=== PATIENT | male | born 1935 | race Caucasian/White ===

== ENCOUNTER 2020-09-26 20:26 | Inpatient (IN) ==
[2020-09-26] MEDS ORDERED: DUONEB NEB STA (20:57)
[2020-09-26 21:05] LABS: ABG PH 7.46 (7.35-7.45)
[2020-09-26 21:06] LABS: ABG BASE EXCESS 5.4 (-2.0-2.0); ABG HCO3 29.2 (22.0-26.0); ABG OXYGEN SATURATION 88.9 % (95-100); ABG TCO2 30.5 (22.0-28.0)
[2020-09-26] MEDS ORDERED: PROAIR HFA (SINGLE PATIENT USE) IH STA (21:10)
[2020-09-26] MEDS ORDERED: ATROVENT HFA INHALER (PER PUFF-WITH SPACER) IH STA (21:10)
--- NOTE | 2020-09-26 21:19 | ED.PDOC ---
General ED Provider: Dr. LEI SALAS Stated Complaint: Patient is brought By EMS with complaints of cough for two weeks and now fever with shortness of breath. Family also report some confusion but he has been answering questions appropriately. Denies any chest pain, abdominal pain or difficulty or burning on urination. Time Seen by Physician: 20:50 Mode of Arrival: Ambulance Information Source: EMT Exam Limitations: No limitations Primary Care Provider: MEY HOBSON Nursing and Triage Documentation Reviewed and Agree: Yes Does patient meet sepsis criteria?: Yes If yes, has appropriate treatment been initiated?: Yes System Inflammatory Response Syndrome: Pulse >90 BPM, Resp >20/Minute and Acutely Altered Mental Status Sepsis Protocol: For patient's 13 years and over: Temp is 96.8 and below OR 101 and greater Pulse >90 BPM Resp >20/minute Acutely Altered Mental Status Are patient's symptoms suggestive of a new infection, such as: -Pneumonia -Skin, Soft Tissue -Endocarditis -UTI -Bone, Joint Infection -Implantable Device -Acute Abdominal Infection -Wound Infection -Meningitis -Blood Stream Catheter Infection -Unknown Respiratory Complaint Exam Shortness of Air Complaint/Exam Onset/Duration: 2 weeks Symptoms Are: Still present Timing: Constant Initial Severity: Mild Current Severity: Moderate Character: Reports Dyspnea at rest Aggravating: Reports Weather Alleviating: Reports Oxygen Associated Signs and Symptoms: Reports Cough, Fever, Chills and Rapid breathing; Denies Chest pain with cough, Chest pain, Diaphoresis and Dizziness History of Healthcare-Acquired Pneumonia: No Home Oxygen Use: No Recent Stress Test: No Recent Echo/LV Function: No Respiratory Distress: Mild Stridor Present: No Tracheal Deviation: No Subcutaneous Emphysema: No Accessory Muscle Use: No Retractions: Not Present Diminished Breath Sounds: No Prolonged Expiratory Phase: No Unable to Speak Full Sentences: No Fatigue: No Leg Swelling: No Ellis's Sign Present: No Grunting Respirations: No Kussmaul Respirations: No Differential Diagnoses: Pulmonary Edema, OR, Pneumonia, Bronchitis and URI Review of Systems Review Of Systems Constitutional: Reports Chills and Fever Eyes: Reports No symptoms Ears, Nose, Mouth, Throat: Reports No symptoms Respiratory: Reports Cough and Short of air Cardiac: Reports No symptoms GI: Reports No symptoms : Reports No symptoms Musculoskeletal: Reports No symptoms Skin: Reports No symptoms Neurological: Reports Anxiety Endocrine: Reports No symptoms Hematologic/Lymphatic: Reports No symptoms All Other Systems: Reviewed and Negative Physical Exam Physical Exam Appearance: Reports Ill-appearing Ill-appearing: Moderate Pain Distress: None Eyes: Reports GARY, EOMI and Conjunctiva clear ENT: Reports Nose normal Neck: Supple Respiratory: Reports Airway patent, Crackles and Rhonchi Cardiovascular: Reports RRR, Pulses normal and No rub GI/: Reports Soft and Nontender Musculoskeletal: Reports Normal strength, ROM intact and No edema Skin: Reports Warm, Dry and Normal color Neurological: Reports Motor intact, Alert and Oriented Psychiatric: Reports Affect appropriate and Mood appropriate Interpretation Radiology Interpretation Radiology Interpretation By: Radiologist Radiology Results: Positive (1. No evidence of pulmonary artery thrombus 2. Bilateral lower lung consolidative pneumonia.) Exam Interpreted: CT Scan Critical Care Note Critical Care Note Total Critical Care Time (mins): 45 Course Course Hematology/Chemistry: 09/26/20 21:15 09/26/20 21:15 Orders, Labs, Meds: Lab Review 09/26/20 09/26/20 09/26/20 20:57 21:15 21:15 WBC 10.29 H RBC 4.22 L Hgb 12.9 L Hct 38.0 L MCV 90.0 MCH 30.6 MCHC 33.9 RDW Coeff of Olaf 13.7 Plt Count 196 Neutrophils % (Manual) 64.0 Band Neutrophils % 18.0 H Lymphocytes % (Manual) 9.0 L Monocytes % (Manual) 9.0 Anisocytosis Not present Puncture Site Rrad O2 Saturation 88.9 L ABG pH 7.46 H ABG pCO2 41.0 ABG pO2 53.0 L* ABG HCO3 29.2 H ABG Total CO2 30.5 H ABG Base Excess 5.4 H Migel Test + FiO2 % 21.0 Sodium 134.7 Potassium 3.84 Chloride 98.1 Carbon Dioxide 30.5 H Anion Gap 9.94 BUN 32.0 H Creatinine 1.30 H Estimated GFR (MDRD) 53.00 BUN/Creatinine Ratio 24.61 Glucose 204.6 H Lactic Acid Calcium 8.41 Total Bilirubin 0.81 AST 22.1 ALT 15.4 Alkaline Phosphatase 65.8 Total Creatine Kinase 119.9 CK-MB (CK-2) 5.260 H* CK-MB (CK-2) % 4.3800 Troponin I 0.016 NT-Pro-B Natriuret Pep 1850.000 H Total Protein 6.50 Albumin 3.47 L Globulin 3.03 Albumin/Globulin Ratio 1.14 Procalcitonin D-Dimer Adenovirus (PCR) B. pertussis DNA (PCR) B.parapertussis DNA PCR C. pneumoniae DNA (PCR) Coronavirus OC43 (PCR) Coronavirus HKU1 (PCR) Coronavirus 229E (PCR) Coronavirus NL63 (PCR) Human Metapneumovir PCR Influenza Type A (PCR) Influenza B (RT-PCR) M. pneumoniae (PCR) Parainfluenza 1 (PCR) Parainfluenza 2 (PCR) Parainfluenza 3 (PCR) Parainfluenza 4 (PCR) RSV (PCR) Entero/Rhino (PCR) SARS-CoV-2 (PCR) 09/26/20 09/26/20 09/26/20 21:15 21:15 21:15 WBC RBC Hgb Hct MCV MCH MCHC RDW Coeff of Olaf Plt Count Neutrophils % (Manual) Band Neutrophils % Lymphocytes % (Manual) Monocytes % (Manual) Anisocytosis Puncture Site O2 Saturation ABG pH ABG pCO2 ABG pO2 ABG HCO3 ABG Total CO2 ABG Base Excess Migel Test FiO2 % Sodium Potassium Chloride Carbon Dioxide Anion Gap BUN Creatinine Estimated GFR (MDRD) BUN/Creatinine Ratio Glucose Lactic Acid 0.96 Calcium Total Bilirubin AST ALT Alkaline Phosphatase Total Creatine Kinase CK-MB (CK-2) CK-MB (CK-2) % Troponin I NT-Pro-B Natriuret Pep Total Protein Albumin Globulin Albumin/Globulin Ratio Procalcitonin 7.02 D-Dimer 2104.87 H Adenovirus (PCR) B. pertussis DNA (PCR) B.parapertussis DNA PCR C. pneumoniae DNA (PCR) Coronavirus OC43 (PCR) Coronavirus HKU1 (PCR) Coronavirus 229E (PCR) Coronavirus NL63 (PCR) Human Metapneumovir PCR Influenza Type A (PCR) Influenza B (RT-PCR) M. pneumoniae (PCR) Parainfluenza 1 (PCR) Parainfluenza 2 (PCR) Parainfluenza 3 (PCR) Parainfluenza 4 (PCR) RSV (PCR) Entero/Rhino (PCR) SARS-CoV-2 (PCR) 09/26/20 22:00 WBC RBC Hgb Hct MCV MCH MCHC RDW Coeff of Olaf Plt Count Neutrophils % (Manual) Band Neutrophils % Lymphocytes % (Manual) Monocytes % (Manual) Anisocytosis Puncture Site O2 Saturation ABG pH ABG pCO2 ABG pO2 ABG HCO3 ABG Total CO2 ABG Base Excess Migel Test FiO2 % Sodium Potassium Chloride Carbon Dioxide Anion Gap BUN Creatinine Estimated GFR (MDRD) BUN/Creatinine Ratio Glucose Lactic Acid Calcium Total Bilirubin AST ALT Alkaline Phosphatase Total Creatine Kinase CK-MB (CK-2) CK-MB (CK-2) % Troponin I NT-Pro-B Natriuret Pep Total Protein Albumin Globulin Albumin/Globulin Ratio Procalcitonin D-Dimer Adenovirus (PCR) Not detected B. pertussis DNA (PCR) Not detected B.parapertussis DNA PCR Not detected C. pneumoniae DNA (PCR) Not detected Coronavirus OC43 (PCR) Not detected Coronavirus HKU1 (PCR) Not detected Coronavirus 229E (PCR) Not detected Coronavirus NL63 (PCR) Not detected Human Metapneumovir PCR Not detected Influenza Type A (PCR) Not detected Influenza B (RT-PCR) Not detected M. pneumoniae (PCR) Not detected Parainfluenza 1 (PCR) Not detected Parainfluenza 2 (PCR) Not detected Parainfluenza 3 (PCR) Not detected Parainfluenza 4 (PCR) Not detected RSV (PCR) Not detected Entero/Rhino (PCR) Detected H SARS-CoV-2 (PCR) Not detected Orders Category Date Time Status ABG DRAW REQUEST Stat CARDIO 09/26/20 20:58 Completed ECHOCARDIOGRAM 2D-M MODE Routine CARDIO 09/27/20 00:08 Ordered ECHOCARDIOGRAM 2D-M MODE Routine CARDIO 09/27/20 00:15 Ordered EKG-(ED ONLY) Stat CARDIO 09/26/20 20:57 Completed METERED DOSE INHALATION Routine CARDIO 09/27/20 00:16 Active OXYGEN Routine CARDIO 09/27/20 00:08 Active ACTIVITY .Early Mobilization for VTE Prevention CARE 09/27/20 00:09 Active INTAKE & OUTPUT Q8HR CARE 09/27/20 00:08 Active NPO REMINDER: IMAGING ONCE CARE 09/26/20 22:01 Active VITAL SIGNS Q4HR CARE 09/27/20 00:09 Active VTE PREVENTION .ROVERTO and SCD On AM/Off PM CARE 09/27/20 00:08 Active CARDIAC DIET DIETARY 09/27/20 Breakfast Ordered ED ACCUCHECK ASSESSMENT .ONCE EMERGENCY 09/27/20 00:15 Active ED APPLY O2 .ONCE EMERGENCY 09/26/20 20:57 Active ED IV/MEDIPORT/POWERPORT .ONCE EMERGENCY 09/26/20 20:57 Active ABG Stat LAB 09/26/20 20:57 Completed BASIC METABOLIC PANEL DAILY@0600 LAB 09/27/20 06:00 Ordered BASIC METABOLIC PANEL DAILY@0600 LAB 09/28/20 06:00 Ordered BLOOD CULTURE (ED ONLY) Stat LAB 09/26/20 21:15 Received CBC W/ AUTO DIFF DAILY@0600 LAB 09/27/20 06:00 Ordered CBC W/ AUTO DIFF DAILY@0600 LAB 09/28/20 06:00 Ordered CBC W/ AUTO DIFF Stat LAB 09/26/20 21:15 Completed COMPREHENSIVE METABOLIC PANEL Stat LAB 09/26/20 21:15 Completed CREATINE KINASE Q8H LAB 09/27/20 06:15 Ordered CREATINE KINASE Q8H LAB 09/27/20 14:15 Ordered CREATINE KINASE Stat LAB 09/26/20 21:15 Completed D-DIMER Stat LAB 09/26/20 21:15 Completed LACTIC ACID Stat LAB 09/26/20 21:15 Completed MANUAL DIFFERENTIAL Stat LAB 09/26/20 21:15 Completed NT-PROBNP Stat LAB 09/26/20 21:15 Completed PROCALCITONIN Stat LAB 09/26/20 21:15 Completed RESPIRATORY PANEL 2.1 (PCR) Stat LAB 09/26/20 22:00 Completed TROPONIN I Q8H LAB 09/27/20 06:15 Ordered TROPONIN I Q8H LAB 09/27/20 14:15 Ordered TROPONIN I Stat LAB 09/26/20 21:15 Completed 0.9 % Sodium Chloride [Saline Flush] MEDS 09/26/20 20:57 Active 1 syr IVF PRN PRN Acetaminophen [Tylenol] MEDS 09/27/20 00:08 Active 650 mg PO Q4H PRN Albuterol Inhaler (Single Pt) [Proair Hfa (Single MEDS 09/26/20 21:10 Discontinued Patient Use)] 2 puff IH ONCE STA Albuterol Inhaler(with Spacer) [Ventolin Hfa (Per Puff- MEDS 09/27/20 06:00 Active with Spacer)] 2 puff IH RTQID Azithromycin Inj [Zithromax] 500 mg MEDS 09/27/20 00:13 Active 0.9 % Sodium Chloride [Sodium Chloride] 250 ml IV ONCE Ceftriaxone/D5w 1 gm Premix [Rocephin 1 gm/50 ml D5w] MEDS 09/28/20 09:00 Ordered 1 gm in 50 ml IV DAILY Ceftriaxone/D5w 1 gm Premix [Rocephin 1 gm/50 ml D5w] MEDS 09/27/20 00:06 Discontinued 1 gm in 50 ml IV ONCE Fluticasone Propionate [Flonase] MEDS 09/27/20 09:00 Active 1 spray ELENA DAILY Gabapentin [Neurontin] MEDS 09/27/20 09:00 Active 600 mg PO TID Glimepiride [Amaryl] MEDS 09/27/20 09:00 Active 1 mg PO TID Hydrochlorothiazide MEDS 09/27/20 09:00 Active 50 mg PO DAILY Ipratropium Inhaler(Spacer) [Atrovent Hfa Inhaler (Per MEDS 09/26/20 21:10 Discontinued Puff-with Spacer)] 2 puff IH ONCE STA Ipratropium Inhaler(Spacer) [Atrovent Hfa Inhaler (Per MEDS 09/27/20 06:00 Active Puff-with Spacer)] 2 puff IH RTQ6H Lisinopril [Zestril] MEDS 09/27/20 09:00 Active 40 mg PO DAILY Montelukast Sodium [Singulair] MEDS 09/27/20 09:00 Active 10 mg PO DAILY Ondansetron HCl/Pf [Zofran 4 mg/2 ml] MEDS 09/27/20 00:08 Active 4 mg IVP Q6H PRN Pramipexole Di-HCl [Mirapex] MEDS 09/27/20 09:00 Active 1.5 mg PO BID Propranolol HCl [Inderal] MEDS 09/27/20 09:00 Active 20 mg PO BID aspirin MEDS 09/27/20 00:29 Ordered 325 mg PO DAILY PRN cetirizine [Zyrtec] MEDS 09/27/20 00:29 Ordered 5 mg PO DAILY PRN metformin MEDS 09/27/20 09:00 Ordered 500 mg PO BID terazosin MEDS 09/27/20 09:00 Ordered 2 mg PO DAILY vitamin B complex MEDS 09/27/20 09:00 Ordered 1 cap PO DAILY RESUSCITATION STATUS Routine OTHERS 09/27/20 00:[address] CHEST PE PROTOCOL Stat RADS 09/26/20 22:01 Completed Medications Generic Name Dose Route Start Last Admin Trade Name Freq PRN Reason Stop Dose Admin Acetaminophen 650 mg 09/27/20 00:08 Acetaminophen 325 Mg Tablet PO Q4H PRN Fever >101 Albuterol Sulfate 2 puff 09/27/20 06:00 Albuterol Sulfate (Ventolin Hfa) 18 Gm 1 Puff With Spacer IH RTQID VINOD Aspirin 325 mg 09/27/20 00:52 Aspirin 325 Mg Tablet.Dr PO DAILY PRN joint pain Fluticasone Propionate 1 spray 09/27/20 09:00 Fluticasone Propionate 16 Gm Nasal [place] ELENA DAILY VINOD Gabapentin 600 mg 09/27/20 09:00 Gabapentin 300 Mg Capsule PO TID VINOD Glimepiride 1 mg 09/27/20 09:00 Glimepiride 2 Mg Tablet PO TID [facility] Hydrochlorothiazide 50 mg 09/27/20 09:00 Hydrochlorothiazide 25 Mg Tablet PO DAILY VINOD CEFTRIAXONE/D5W 1 GM PREMIX 1 gm in 50 mls @ 75 mls/hr 09/27/20 21:00 Rocephin 1 Gm/50 Ml D5w IV 09/30/20 20:59 BEDTIME VINOD Azithromycin 500 mg/ Sodium 250 mls @ 125 mls/hr 09/27/20 00:13 Chloride IV 09/27/20 02:12 ONCE STA Ipratropium [place] 2 puff 09/27/20 06:00 Ipratropium [place] 12.9 Gm Hfa Inhaler Per Puff With Spacer IH RTQ6H VINOD Lisinopril 40 mg 09/27/20 09:00 Lisinopril 40 Mg Tablet PO DAILY VINOD Metformin HCl 500 mg 09/27/20 09:00 Metformin Hcl 500 Mg Tablet PO BIDWM VINOD Montelukast Sodium 10 mg 09/27/20 09:00 Montelukast Sodium 10 Mg Tablet PO DAILY VINOD Non-Formulary Medication 2 mg 09/27/20 09:00 Terazosin PO DAILY VINOD Non-Formulary Medication 1 cap 09/27/20 09:00 Vitamin B Complex PO DAILY VINOD Non-Formulary Medication 5 mg 09/27/20 00:29 Cetirizine [Zyrtec] PO DAILY PRN allergies Ondansetron HCl 4 mg 09/27/20 00:08 Ondansetron Hcl/Pf 4 Mg/2 Ml Sdv IVP Q6H PRN Nausea / Vomiting Pramipexole Dihydrochloride 1.5 mg 09/27/20 09:00 Pramipexole Di-Hcl 1 Mg Tablet PO BID VINOD Propranolol HCl 20 mg 09/27/20 09:00 Propranolol Hcl 20 Mg Tablet PO BID VINOD Sodium Chloride 1 syr 09/26/20 20:57 0.9% Sodium Chloride 10 Ml Disp.Syrin IVF PRN PRN To flush IV Discontinued Medications Generic Name Dose Route Start Last Admin Trade Name Freq PRN Reason Stop Dose Admin Albuterol Sulfate 2 puff 09/26/20 21:10 09/26/20 21:59 Albuterol Sulfate 8.5 Gm Inhaler (Single Patient Use) IH 09/26/20 21:11 2 puff ONCE STA Administration CEFTRIAXONE/D5W 1 GM PREMIX 1 gm in 50 mls @ 75 mls/hr 09/27/20 00:06 09/27/20 00:43 Rocephin 1 Gm/50 Ml D5w IV 09/27/20 00:45 75 mls/hr ONCE STA Administration Ipratropium [place] 2 puff 09/26/20 21:10 09/26/20 21:59 Ipratropium [place] 12.9 Gm Hfa Inhaler Per Puff With Spacer IH 09/26/20 21:11 2 puff ONCE STA Administration Vital Signs: Temp Pulse Resp BP Pulse Ox 09/26/20 20:42 99.2 F 94 H 24 102/56 L 87 L Discharge Plan Discharge Patient Disposition: ADMITTED INPATIENT Discharge Problem: Acute hypoxemic respiratory failure Community acquired pneumonia Qualifiers: Laterality: unspecified laterality Qualified Code(s): J18.9 - Pneumonia, unspecified organism ED Provider: LEI SALAS Condition: Fair Physician Progress Note: []
[2020-09-26 21:21] LABS: HEMOGLOBIN 12.9 g/dl (14.0-18.0); MEAN CORPUSCULAR HEMOGLOBIN 30.6 pg (27.0-31.0); MEAN CORPUSCULAR HGB CONC 33.9 (31.8-35.4); PLATELET COUNT 196 10^3/uL (140-440); RDW COEFFICIENT OF VARIATION 13.7 % (11.6-14.8); RED BLOOD COUNT 4.22 10^6/ul (4.70-6.10); WHITE BLOOD COUNT 10.29 K/ul (4.2-10.2)
[2020-09-26 21:30] LABS: ANISOCYTOSIS NOT PRESENT (NOT PRESENT)
[2020-09-26 21:34] LABS: ALANINE AMINOTRANSFERASE 15.4 U/L (0-50); ALBUMIN 3.47 g/dL (3.5-5.0); ALKALINE PHOSPHATASE 65.8 U/L (56-119); ASPARTATE AMINO TRANSFERASE 22.1 U/L (17-59); BILIRUBIN,TOTAL 0.81 mg/dL (0.2-1.3); CALCIUM 8.41 mg/dL (8.4-10.2); CARBON DIOXIDE 30.5 mmol/L (22-30.0); CHLORIDE 98.1 mmol/L (98-107); CREATINE KINASE 119.9 U/L (55-170); CREATININE 1.3 mg/dL (0.60-1.10); GLUCOSE 204.6 mg/dL (74-106); POTASSIUM 3.84 mmol/L (3.5-5.1); SODIUM 134.7 mmol/L (134.5-145); TOTAL PROTEIN 6.5 g/dL (6.3-8.2)
[2020-09-26 21:46] LABS: TROPONIN I 0.016 ng/ml (0.0000-0.120)
--- NOTE | 2020-09-26 23:56 | CT ---
Exam: CT angiography of the chest History: Elevated D-dimer Technique: [address] of the chest utilizing CT angiography protocol per multiplanar and m aximum intensity projection reformations were performed. FINDINGS: Technically adequate for evaluation of pulmonary arteries and aorta. There are no pulmona ry artery filling defects. Atherosclerotic calcification of the aorta without aneurysm. Lung window s show right greater than left lower lung consolidative pneumonia. Bilateral reactive hilar lymph no de abundance. No acute chest wall abnormality. No acute findings of the upper abdomen. Impression: 1. No evidence of pulmonary artery thrombus 2. Bilateral lower lung consolidative pneumonia.
[2020-09-27] MEDS ORDERED: ROCEPHIN 1 GM/50 ML D5W 1 GM/50 ML BAG IV STA (00:06)
[2020-09-27] MEDS ORDERED: TYLENOL PO PRN (00:08)
[2020-09-27] MEDS ORDERED: ZOFRAN 4 MG/2 ML IVP PRN (00:08)
[2020-09-27] MEDS ORDERED: ZITHROMAX 500 MG in SODIUM CHLORIDE 250 ML IV STA (00:13)
[2020-09-27] MEDS ORDERED: ASPIRIN EC PO PRN (00:52)
--- NOTE | 2020-09-27 00:52 | PCM ---
History of Present Illness History of Present Illness: Patient is an 65 year old who come to the ER by EMS with a two week history of cough and shortness of breath which got worse with a fever of101. Review of Systems Constitutional: Reports Fever and Chills Eyes: Denies No symptoms, Blurred vision, Double-vision, Discharge, Itching, Pain, Redness, Photophobia and Other Ears: Denies No symptoms, Pain, Bleeding, Drainage, Ringing, Hearing loss and Other Nose: Denies No symptoms, Bleeding, Congestion, Discharge and Other Throat: Denies No symptoms, Pain, Swelling, Voice change and Other Mouth: Denies No symptoms, Bleeding, Pain, Swelling and Other Respiratory: Reports Cough and Shortness of air; Denies No symptoms, Wheeze, Hemoptysis, Pain with breathing and Other Gastrointestinal: Denies No symptoms, Abdominal pain, Nausea, Vomiting, Diarrhea, Melena, Hematemesis, Hematochezia, Dysphagia, Constipation and Other Genitourinary: Denies No symptoms, dysuria, hematuria, frequency, incontinence, flank pain, penile discharge, testicular pain, testicular swelling and other Neurological: Denies No symptoms, Headache, Dizziness, Seizure, Numbness, Weakness, Speech difficulty, Problems with walking, Tremor, Fainting and Other Musculoskeletal: Denies No symptoms, Pain, Swelling in joints and Other Skin: Denies No symptoms, Rash, Pruritus, Lacerations, Wounds, Bruising and Other Immunology: Denies No symptoms, Hives, Itching, Frequent infections, Difficulty healing and Other Hematology: Denies No symptoms, Easy bruising, Easy bleeding, Swollen glands and Other Endocrine: Denies No symptoms, Weight changes, Cold intolerance, Heat intolerance, Excessive thirst, Excessive hunger, Polyuria and Other Psychiatric: Reports Anxiety Habits: Denies Tobacco use, Substance use, Alcohol use and Other Allergies Allergies Allergy/AdvReac Type Severity Reaction Status Date / Time latex AdvReac Rash Verified 09/26/20 21:30 Medications Medications: Medications Generic Name Dose Route Start Last Admin Trade Name Freq PRN Reason Stop Dose Admin Acetaminophen 650 mg 09/27/20 00:08 Acetaminophen 325 Mg Tablet PO Q4H PRN Fever >101 Albuterol Sulfate 2 puff 09/27/20 06:00 Albuterol Sulfate (Ventolin Hfa) 18 Gm 1 Puff With Spacer RTQID [facility] Fluticasone Propionate 1 spray 09/27/20 09:00 Fluticasone Propionate 16 Gm Nasal [place] ELENA DAILY [facility] Gabapentin 600 mg 09/27/20 09:00 Gabapentin 300 Mg Capsule PO TID [facility] Glimepiride 1 mg 09/27/20 09:00 Glimepiride 2 Mg Tablet PO TID [facility] Hydrochlorothiazide 50 mg 09/27/20 09:00 Hydrochlorothiazide 25 Mg Tablet PO DAILY [facility] CEFTRIAXONE/D5W 1 GM PREMIX 1 gm in 50 mls @ 75 mls/hr 09/28/20 09:00 Rocephin 1 Gm/50 Ml D5w IV 10/01/20 08:59 DAILY [facility] Azithromycin 500 mg/ Sodium 250 mls @ 125 mls/hr 09/27/20 00:13 Chloride IV 09/27/20 02:12 ONCE STA Ipratropium Leary 2 puff 09/27/20 06:00 Ipratropium Leary 12.9 Gm Hfa Inhaler Per Puff With Spacer IH RTQ6H [facility] Lisinopril 40 mg 09/27/20 09:00 Lisinopril 40 Mg Tablet PO DAILY [facility] Montelukast Sodium 10 mg 09/27/20 09:00 Montelukast Sodium 10 Mg Tablet PO DAILY [facility] Non-Formulary Medication 500 mg 09/27/20 09:00 Metformin PO BID [facility] Non-Formulary Medication 2 mg 09/27/20 09:00 Terazosin PO DAILY [facility] Non-Formulary Medication 1 cap 09/27/20 09:00 Vitamin B Complex PO DAILY [facility] Non-Formulary Medication 325 mg 09/27/20 00:29 Aspirin PO DAILY PRN joint pain Non-Formulary Medication 5 mg 09/27/20 00:29 Cetirizine [Zyrtec] PO DAILY PRN allergies Ondansetron HCl 4 mg 09/27/20 00:08 Ondansetron Hcl/Pf 4 Mg/2 Ml Sdv IVP Q6H PRN Nausea / Vomiting Pramipexole Dihydrochloride 1.5 mg 09/27/20 09:00 Pramipexole Di-Hcl 1 Mg Tablet PO BID [facility] Propranolol HCl 20 mg 09/27/20 09:00 Propranolol Hcl 20 Mg Tablet PO BID [facility] Sodium Chloride 1 syr 09/26/20 20:57 0.9% Sodium Chloride 10 Ml Disp.Syrin IVF PRN PRN To flush IV Body Composition Height: 5 ft 7 in Weight: 87.997 kg Body Mass Index (BMI): 30.4 Vital Signs Temperature: 99.2 F Pulse Rate: 94 Respiratory Rate: 24 Blood Pressure: 102/56 O2 Sat by Pulse Oximetry: 87 Physical Examination Appearance: Reports Ill-appearing Ill-appearing: Moderate Pain Distress: None Eyes: Denies GARY, EOMI, Conjunctiva clear, Conjunctiva inflammed, Conjunctiva pale, Right pupil size, Left pupil size and Other ENT: Denies Ears normal, Nose normal, Oropharynx normal, TMs Occluded, Rhinorrhea, Epistaxis, Erythema, Exudate, Dry mucosa and Other Neck: Supple Respiratory: Reports Rhonchi Cardiovascular: Denies RRR, Pulses normal, No rub, No murmur, Irregular rhythm, Tachycardia, Bradycardia, Abnormal pulses, Murmur and Other GI/: Denies Soft, Nontender, No masses, Bowel sounds normal, No Organomegaly, Tender, Mass, Bowel sounds hypoactive, Bowel sounds hyperactive, Hepatomegaly, Splenomegaly and Other Musculoskeletal: Denies Normal strength, ROM intact, No edema, No calf tenderness, Limited ROM, Limited strength, Edema, Calf tenderness and Other Skin: Denies Warm, Dry, Normal color, Pale, Diaphoretic, Cyanotic and Other Neurological: Reports Sensation intact, Motor intact, Alert and Oriented Psychiatric: Reports Anxious Lab/Tests/Diagnostic Imaging Lab/Tests/Diagnostic Imaging: Lab Review 09/26/20 09/26/20 09/26/20 20:57 21:15 21:15 WBC 10.29 H RBC 4.22 L Hgb 12.9 L Hct 38.0 L MCV 90.0 MCH 30.6 MCHC 33.9 RDW Coeff of Olaf 13.7 Plt Count 196 Neutrophils % (Manual) 64.0 Band Neutrophils % 18.0 H Lymphocytes % (Manual) 9.0 L Monocytes % (Manual) 9.0 Anisocytosis Not present Puncture Site Rrad O2 Saturation 88.9 L ABG pH 7.46 H ABG pCO2 41.0 ABG pO2 53.0 L* ABG HCO3 29.2 H ABG Total CO2 30.5 H ABG Base Excess 5.4 H Migel Test + FiO2 % 21.0 Sodium 134.7 Potassium 3.84 Chloride 98.1 Carbon Dioxide 30.5 H Anion Gap 9.94 BUN 32.0 H Creatinine 1.30 H Estimated GFR (MDRD) 53.00 BUN/Creatinine Ratio 24.61 Glucose 204.6 H Lactic Acid Calcium 8.41 Total Bilirubin 0.81 AST 22.1 ALT 15.4 Alkaline Phosphatase 65.8 Total Creatine Kinase 119.9 CK-MB (CK-2) 5.260 H* CK-MB (CK-2) % 4.3800 Troponin I 0.016 NT-Pro-B Natriuret Pep 1850.000 H Total Protein 6.50 Albumin 3.47 L Globulin 3.03 Albumin/Globulin Ratio 1.14 Procalcitonin D-Dimer Adenovirus (PCR) B. pertussis DNA (PCR) B.parapertussis DNA PCR C. pneumoniae DNA (PCR) Coronavirus OC43 (PCR) Coronavirus HKU1 (PCR) Coronavirus 229E (PCR) Coronavirus NL63 (PCR) Human Metapneumovir PCR Influenza Type A (PCR) Influenza B (RT-PCR) M. pneumoniae (PCR) Parainfluenza 1 (PCR) Parainfluenza 2 (PCR) Parainfluenza 3 (PCR) Parainfluenza 4 (PCR) RSV (PCR) Entero/Rhino (PCR) SARS-CoV-2 (PCR) 09/26/20 09/26/20 09/26/20 21:15 21:15 21:15 WBC RBC Hgb Hct MCV MCH MCHC RDW Coeff of Olaf Plt Count Neutrophils % (Manual) Band Neutrophils % Lymphocytes % (Manual) Monocytes % (Manual) Anisocytosis Puncture Site O2 Saturation ABG pH ABG pCO2 ABG pO2 ABG HCO3 ABG Total CO2 ABG Base Excess Migel Test FiO2 % Sodium Potassium Chloride Carbon Dioxide Anion Gap BUN Creatinine Estimated GFR (MDRD) BUN/Creatinine Ratio Glucose Lactic Acid 0.96 Calcium Total Bilirubin AST ALT Alkaline Phosphatase Total Creatine Kinase CK-MB (CK-2) CK-MB (CK-2) % Troponin I NT-Pro-B Natriuret Pep Total Protein Albumin Globulin Albumin/Globulin Ratio Procalcitonin 7.02 D-Dimer 2104.87 H Adenovirus (PCR) B. pertussis DNA (PCR) B.parapertussis DNA PCR C. pneumoniae DNA (PCR) Coronavirus OC43 (PCR) Coronavirus HKU1 (PCR) Coronavirus 229E (PCR) Coronavirus NL63 (PCR) Human Metapneumovir PCR Influenza Type A (PCR) Influenza B (RT-PCR) M. pneumoniae (PCR) Parainfluenza 1 (PCR) Parainfluenza 2 (PCR) Parainfluenza 3 (PCR) Parainfluenza 4 (PCR) RSV (PCR) Entero/Rhino (PCR) SARS-CoV-2 (PCR) 09/26/20 22:00 WBC RBC Hgb Hct MCV MCH MCHC RDW Coeff of Olaf Plt Count Neutrophils % (Manual) Band Neutrophils % Lymphocytes % (Manual) Monocytes % (Manual) Anisocytosis Puncture Site O2 Saturation ABG pH ABG pCO2 ABG pO2 ABG HCO3 ABG Total CO2 ABG Base Excess Migel Test FiO2 % Sodium Potassium Chloride Carbon Dioxide Anion Gap BUN Creatinine Estimated GFR (MDRD) BUN/Creatinine Ratio Glucose Lactic Acid Calcium Total Bilirubin AST ALT Alkaline Phosphatase Total Creatine Kinase CK-MB (CK-2) CK-MB (CK-2) % Troponin I NT-Pro-B Natriuret Pep Total Protein Albumin Globulin Albumin/Globulin Ratio Procalcitonin D-Dimer Adenovirus (PCR) Not detected B. pertussis DNA (PCR) Not detected B.parapertussis DNA PCR Not detected C. pneumoniae DNA (PCR) Not detected Coronavirus OC43 (PCR) Not detected Coronavirus HKU1 (PCR) Not detected Coronavirus 229E (PCR) Not detected Coronavirus NL63 (PCR) Not detected Human Metapneumovir PCR Not detected Influenza Type A (PCR) Not detected Influenza B (RT-PCR) Not detected M. pneumoniae (PCR) Not detected Parainfluenza 1 (PCR) Not detected Parainfluenza 2 (PCR) Not detected Parainfluenza 3 (PCR) Not detected Parainfluenza 4 (PCR) Not detected RSV (PCR) Not detected Entero/Rhino (PCR) Detected H SARS-CoV-2 (PCR) Not detected Orders Category Date Time Status ABG DRAW REQUEST Stat CARDIO 09/26/20 20:58 Completed ECHOCARDIOGRAM 2D-M MODE Routine CARDIO 09/27/20 00:08 Ordered ECHOCARDIOGRAM 2D-M MODE Routine CARDIO 09/27/20 00:15 Ordered EKG-(ED ONLY) Stat CARDIO 09/26/20 20:57 Completed METERED DOSE INHALATION Routine CARDIO 09/27/20 00:16 Active OXYGEN Routine CARDIO 09/27/20 00:08 Active ACTIVITY .Early Mobilization for VTE Prevention CARE 09/27/20 00:09 Active INTAKE & OUTPUT Q8HR CARE 09/27/20 00:08 Active NPO REMINDER: IMAGING ONCE CARE 09/26/20 22:01 Active VITAL SIGNS Q4HR CARE 09/27/20 00:09 Active VTE PREVENTION .ROVERTO and SCD On AM/Off PM CARE 09/27/20 00:08 Active CARDIAC DIET DIETARY 09/27/20 Breakfast Ordered ED ACCUCHECK ASSESSMENT .ONCE EMERGENCY 09/27/20 00:15 Active ED APPLY O2 .ONCE EMERGENCY 09/26/20 20:57 Active ED IV/MEDIPORT/POWERPORT .ONCE EMERGENCY 09/26/20 20:57 Active ABG Stat LAB 09/26/20 20:57 Completed BASIC METABOLIC PANEL DAILY@0600 LAB 09/27/20 06:00 Ordered BASIC METABOLIC PANEL DAILY@0600 LAB 09/28/20 06:00 Ordered BLOOD CULTURE (ED ONLY) Stat LAB 09/26/20 21:15 Received CBC W/ AUTO DIFF DAILY@0600 LAB 09/27/20 06:00 Ordered CBC W/ AUTO DIFF DAILY@0600 LAB 09/28/20 06:00 Ordered CBC W/ AUTO DIFF Stat LAB 09/26/20 21:15 Completed COMPREHENSIVE METABOLIC PANEL Stat LAB 09/26/20 21:15 Completed CREATINE KINASE Q8H LAB 09/27/20 06:15 Ordered CREATINE KINASE Q8H LAB 09/27/20 14:15 Ordered CREATINE KINASE Stat LAB 09/26/20 21:15 Completed D-DIMER Stat LAB 09/26/20 21:15 Completed LACTIC ACID Stat LAB 09/26/20 21:15 Completed MANUAL DIFFERENTIAL Stat LAB 09/26/20 21:15 Completed NT-PROBNP Stat LAB 09/26/20 21:15 Completed PROCALCITONIN Stat LAB 09/26/20 21:15 Completed RESPIRATORY PANEL 2.1 (PCR) Stat LAB 09/26/20 22:00 Completed TROPONIN I Q8H LAB 09/27/20 06:15 Ordered TROPONIN I Q8H LAB 09/27/20 14:15 Ordered TROPONIN I Stat LAB 09/26/20 21:15 Completed 0.9 % Sodium Chloride [Saline Flush] MEDS 09/26/20 20:57 Active 1 syr IVF PRN PRN Acetaminophen [Tylenol] MEDS 09/27/20 00:08 Active 650 mg PO Q4H PRN Albuterol Inhaler (Single Pt) [Proair Hfa (Single MEDS 09/26/20 21:10 Discontinued Patient Use)] 2 puff IH ONCE STA Albuterol Inhaler(with Spacer) [Ventolin Hfa (Per Puff- MEDS 09/27/20 06:00 Active with Spacer)] 2 puff IH RTQID Azithromycin Inj [Zithromax] 500 mg MEDS 09/27/20 00:13 Active 0.9 % Sodium Chloride [Sodium Chloride] 250 ml IV ONCE Ceftriaxone/D5w 1 gm Premix [Rocephin 1 gm/50 ml D5w] MEDS 09/28/20 09:00 Ordered 1 gm in 50 ml IV DAILY Ceftriaxone/D5w 1 gm Premix [Rocephin 1 gm/50 ml D5w] MEDS 09/27/20 00:06 Discontinued 1 gm in 50 ml IV ONCE Fluticasone Propionate [Flonase] MEDS 09/27/20 09:00 Active 1 spray ELENA DAILY Gabapentin [Neurontin] MEDS 09/27/20 09:00 Active 600 mg PO TID Glimepiride [Amaryl] MEDS 09/27/20 09:00 Active 1 mg PO TID Hydrochlorothiazide MEDS 09/27/20 09:00 Active 50 mg PO DAILY Ipratropium Inhaler(Spacer) [Atrovent Hfa Inhaler (Per MEDS 09/26/20 21:10 Discontinued Puff-with Spacer)] 2 puff IH ONCE STA Ipratropium Inhaler(Spacer) [Atrovent Hfa Inhaler (Per MEDS 09/27/20 06:00 Active Puff-with Spacer)] 2 puff IH RTQ6H Lisinopril [Zestril] MEDS 09/27/20 09:00 Active 40 mg PO DAILY Montelukast Sodium [Singulair] MEDS 09/27/20 09:00 Active 10 mg PO DAILY Ondansetron HCl/Pf [Zofran 4 mg/2 ml] MEDS 09/27/20 00:08 Active 4 mg IVP Q6H PRN Pramipexole Di-HCl [Mirapex] MEDS 09/27/20 09:00 Active 1.5 mg PO BID Propranolol HCl [Inderal] MEDS 09/27/20 09:00 Active 20 mg PO BID aspirin MEDS 09/27/20 00:29 Ordered 325 mg PO DAILY PRN cetirizine [Zyrtec] MEDS 09/27/20 00:29 Ordered 5 mg PO DAILY PRN metformin MEDS 09/27/20 09:00 Ordered 500 mg PO BID terazosin MEDS 09/27/20 09:00 Ordered 2 mg PO DAILY vitamin B complex MEDS 09/27/20 09:00 Ordered 1 cap PO DAILY RESUSCITATION STATUS Routine OTHERS 09/27/20 00:[address] CHEST PE PROTOCOL Stat RADS 09/26/20 22:01 Completed Medications Generic Name Dose Route Start Last Admin Trade Name Freq PRN Reason Stop Dose Admin Acetaminophen 650 mg 09/27/20 00:08 Acetaminophen 325 Mg Tablet PO Q4H PRN Fever >101 Albuterol Sulfate 2 puff 09/27/20 06:00 Albuterol Sulfate (Ventolin Hfa) 18 Gm 1 Puff With Spacer IH RTQID [facility] Fluticasone Propionate 1 spray 09/27/20 09:00 Fluticasone Propionate 16 Gm Nasal [place] ELENA DAILY [facility] Gabapentin 600 mg 09/27/20 09:00 Gabapentin 300 Mg Capsule PO TID [facility] Glimepiride 1 mg 09/27/20 09:00 Glimepiride 2 Mg Tablet PO TID [facility] Hydrochlorothiazide 50 mg 09/27/20 09:00 Hydrochlorothiazide 25 Mg Tablet PO DAILY [facility] CEFTRIAXONE/D5W 1 GM PREMIX 1 gm in 50 mls @ 75 mls/hr 09/28/20 09:00 Rocephin 1 Gm/50 Ml D5w IV 10/01/20 08:59 DAILY [facility] Azithromycin 500 mg/ Sodium 250 mls @ 125 mls/hr 09/27/20 00:13 Chloride IV 09/27/20 02:12 ONCE STA Ipratropium Leary 2 puff 09/27/20 06:00 Ipratropium Leary 12.9 Gm Hfa Inhaler Per Puff With Spacer IH RTQ6H [facility] Lisinopril 40 mg 09/27/20 09:00 Lisinopril 40 Mg Tablet PO DAILY [facility] Montelukast Sodium 10 mg 09/27/20 09:00 Montelukast Sodium 10 Mg Tablet PO DAILY [facility] Non-Formulary Medication 500 mg 09/27/20 09:00 Metformin PO BID [facility] Non-Formulary Medication 2 mg 09/27/20 09:00 Terazosin PO DAILY [facility] Non-Formulary Medication 1 cap 09/27/20 09:00 Vitamin B Complex PO DAILY [facility] Non-Formulary Medication 325 mg 09/27/20 00:29 Aspirin PO DAILY PRN joint pain Non-Formulary Medication 5 mg 09/27/20 00:29 Cetirizine [Zyrtec] PO DAILY PRN allergies Ondansetron HCl 4 mg 09/27/20 00:08 Ondansetron Hcl/Pf 4 Mg/2 Ml Sdv IVP Q6H PRN Nausea / Vomiting Pramipexole Dihydrochloride 1.5 mg 09/27/20 09:00 Pramipexole Di-Hcl 1 Mg Tablet PO BID [facility] Propranolol HCl 20 mg 09/27/20 09:00 Propranolol Hcl 20 Mg Tablet PO BID [facility] Sodium Chloride 1 syr 09/26/20 20:57 0.9% Sodium Chloride 10 Ml Disp.Syrin IVF PRN PRN To flush IV Discontinued Medications Generic Name Dose Route Start Last Admin Trade Name Freq PRN Reason Stop Dose Admin Albuterol Sulfate 2 puff 09/26/20 21:10 09/26/20 21:59 Albuterol Sulfate 8.5 Gm Inhaler (Single Patient Use) IH 09/26/20 21:11 2 puff ONCE STA Administration CEFTRIAXONE/D5W 1 GM PREMIX 1 gm in 50 mls @ 75 mls/hr 09/27/20 00:06 09/27/20 00:43 Rocephin 1 Gm/50 Ml D5w IV 09/27/20 00:45 75 mls/hr ONCE STA Administration Ipratropium Leary 2 puff 09/26/20 21:10 09/26/20 21:59 Ipratropium Leary 12.9 Gm Hfa Inhaler Per Puff With Spacer IH 09/26/20 21:11 2 puff ONCE STA Administration Assessment (1) Community acquired pneumonia: Status: Acute Code(s): J18.9 - Pneumonia, unspecified organism SNOMED Code(s): 080156547 Qualifiers: Laterality: unspecified laterality Qualified Code(s): J18.9 - Pneumon ia, unspecified organism (2) Acute hypoxemic respiratory failure: Status: Acute Code(s): J96.01 - Acute respiratory failure with hypoxia SNOMED Code(s): 157089235 Plan Plan: 1. Admit to [facility] 2. Placed on Supplemental oxygen an titrate as needed 3. Place on antibiotics Rocephin and zithromax IV 4. DVT prophylaxis with Teds 5. AM Labs including CMP, CBC 6. 2 D Echo due to elevated BNP.
[2020-09-27 02:22] VITALS: BMI 29.9
[2020-09-27] MEDS: ATROVENT HFA INHALER (PER PUFF-WITH SPACER) IH SCH ×4 (04:50→23:21)
[2020-09-27] MEDS: VENTOLIN HFA (PER PUFF-WITH SPACER) IH SCH ×4 (04:50→23:21)
[2020-09-27 05:43] LABS: HEMATOCRIT 36.3 % (42.0-52.0); HEMOGLOBIN 12.1 g/dl (14.0-18.0); MEAN CORPUSCULAR HEMOGLOBIN 30.2 pg (27.0-31.0); MEAN CORPUSCULAR HGB CONC 33.3 (31.8-35.4); MEAN CORPUSCULAR VOLUME 90.5 fl (80.0-94.0); PLATELET COUNT 205 10^3/uL (140-440); RDW COEFFICIENT OF VARIATION 13.6 % (11.6-14.8); RED BLOOD COUNT 4.01 10^6/ul (4.70-6.10); WHITE BLOOD COUNT 15.08 K/ul (4.2-10.2)
[2020-09-27 05:47] LABS: CALCIUM 7.86 mg/dL (8.4-10.2); CARBON DIOXIDE 31.2 mmol/L (22-30.0); CREATININE 1.41 mg/dL (0.60-1.10); GLUCOSE 345.4 mg/dL (74-106); POTASSIUM 4.44 mmol/L (3.5-5.1); SODIUM 131.9 mmol/L (134.5-145)
[2020-09-27] MEDS ORDERED: VENTOLIN HFA (PER PUFF-WITH SPACER) IH SCH (06:00)
[2020-09-27 06:02] LABS: CREATINE KINASE 118.2 U/L (55-170)
[2020-09-27 06:15] LABS: TROPONIN I 0.015 ng/ml (0.0000-0.120)
[2020-09-27 06:24] LABS: ANISOCYTOSIS NOT PRESENT (NOT PRESENT)
[2020-09-27 06:28] LABS: CREATINE KINASE MB 3.32 ng/ml (0.0-2.38)
[2020-09-27] MEDS ORDERED: CLARITIN PO PRN (07:18)
[2020-09-27] MEDS ORDERED: MIRALAX PO PRN (08:47)
[2020-09-27] MEDS: INDERAL PO SCH ×2 (08:57→20:23)
[2020-09-27] MEDS: SINGULAIR PO SCH (08:58)
[2020-09-27] MEDS: MIRAPEX PO SCH ×2 (08:58→20:21)
[2020-09-27] MEDS: NEURONTIN PO SCH ×3 (08:58→20:24)
[2020-09-27] MEDS: FLONASE NAS SCH (08:59)
[2020-09-27] MEDS ORDERED: PNEUMOVAX 23 IM ONE ×2 (08:59→14:30)
[2020-09-27] MEDS: BALANCED B-100 PO SCH (08:59)
[2020-09-27] MEDS: AMARYL PO SCH ×3 (08:59→20:23)
[2020-09-27] MEDS ORDERED: HYDROCHLOROTHIAZIDE PO SCH (09:00)
[2020-09-27] MEDS ORDERED: ZESTRIL PO SCH (09:00)
[2020-09-27] MEDS ORDERED: HYTRIN PO SCH (09:00)
[2020-09-27] MEDS ORDERED: NON-FORMULARY MEDICATION (Vitamin B Complex Capsule) PO SCH (09:00)
[2020-09-27] MEDS: SOLU-MEDROL 40 MG IVP SCH ×4 (10:34→23:26)
[2020-09-27] MEDS: FLOMAX PO SCH (10:40)
--- NOTE | 2020-09-27 10:55 | ECHO2D ---
Date of Exam: 09/27/2020 Ordering Physician: DR. SALAS-HOSPITALIST; MEY HOBSON- PCP Room #: 110 Reason for Echo: CONGESTIVE HEART FAILURE, ELEVATED BNP M-Mode Normal Adult Results LV Dimensions Normal Adult Results AoV Opening excursions >1.6 1.4 LVEDD-base- 3.5-5.8 4.2 Ao root dimensions 2.0-3.7 3.4 LVESD-base- 3.1-4.6 L. Atrium dimensions 1.9-3.8 4-5 Post. Wall thickness 0.8-1.1 1.3 IV septum (thickness) 0.7-1.2 1.3 Post. Wall excursion 0.72-1.3 NORMAL Septal motion 0.4 Systolic motion R. Ventricular cavity 1.5-2.0 4.0 LVEF 60% >60% Paradoxical septal wall motion MAYBE 2-D : ENLARGED RIGHT VENTRICLE AND LEFT ATRIAL CAVITIES. HYPOKINETIC SEPTUM, NO EFFUSION, NO THROMBUS. CALCIFIC AORTIC VALVES, GOOD AORTIC CUSPS SEPARATION. HYPERDYNAMIC LEFT VENTRICLE POSTERIOR WALL. M-MODE: MV: CALCIFIC MITRAL VALVE ANNULUS AV: CALCIFIC AORTIC VALVES WITH MAYBE MILD STENOSIS TV: NORMAL PV: NORMAL CHAMBER SIZE: ENLARGED LEFT ATRIAL AND RIGHT VENTRICLE CAVITIES WALL MOTION: HYPOKINETIC SEPTUM WITH MILD PARADOXICAL WALL MOTION PERICARDIUM: NORMAL INTERPRETATION: 1. LEFT VENTRICULAR HYPERTROPHY 2. ENLARGED LET ATRIAL AND RIGHT VENTRICLE CAVITIES 3. MILD PARADOXICAL SEPTAL WALL MAKING SEPTUM HYPOKINETIC 4. NORMAL EJECTION FRACTION > 60% 5. CALCIFIC AORTIC VALVES, MAYBE MILD AORTIC STENOSIS, VALVE AREA 2.0 cm2 6. CALCIFIC MITRAL VALVE ANNULUS 7. EVIDENCE OF RIGHT VENTRICLE OVERLOAD / PULMONARY HYPERTENSION MTDD
[2020-09-27] MEDS: HUMULIN R SUBCUT PRN ×3 (12:38→20:24)
[2020-09-27 15:07] LABS: TROPONIN I < 0.012 ng/ml (0.0000-0.120)
--- NOTE | 2020-09-27 15:23 | RS.OTINEVL ---
Subjective - Patient information Date of Evaluation: 09/27/20 Date of Arrival on Unit: 09/27/20 Admitted From:: Emergency Dept Diagnosis: Pneumonia PRECAUTIONS: Fall Risk Usual Living Arrangement: With Spouse Living Arrangement Comments: Live at home with his Home Environment: House Medical History Comments:: Pt has had a hip replacement, TKA, and both shoulders operated on. Surgical History Comments:: Pt has had a hip replacement, TKA, and both shoulders operated on. Subjective Information/ Patient Comments:: "I went to the foot doctor and she found that my oxygen was 85% and then now I am here." "I have gotten weaker." - Level of function Prior to this admission, the patient could do the following:: Independent Selfcare, Independent ADL's, Partially Dependent Ambulation Abilities prior to this admission: Pt reports he was able to take a shower at home with his walkin shower. Pt reports he uses a Rolling walker with large wheels for out in the yard, a rolling walker with small wheels for in the house, and a rollator walker with a seat. Current Equipment Used at Home: 2 Rollator, Glucose monitor Pain Assessment - Pain Pain Score: 0 Interventions - Objective Patient Orientation: Person, Place, Time, Situation Current Interventions: IV's, Oxygen, Telemetry Observation: Pt began choking on the fam cracker when I walked into the room. The patient reported that he was tired and he just returned to bed. Pt was able to complete BUE shoulder flexion, drink from a cup, and cough independently. Pt is able to express his needs and appears to enjoy talking with his nurse. 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 Pt is reading a magazine while watching TV. Interventions - ROM Right Upper Extremity AROM: Slight limitation Left Upper Extremity AROM: WFL's - Strength Right Upper Extremity Strength: Mild Weakness Left Upper Extremity Strength: Mild Weakness - Sensation Right Upper Extremity Sensation: Intact/Normal Left Upper Extremity Sensation: Intact/Normal Comments:: Pt reports that he refuses to pull beads out of putty. Balance - Standing Balance Static Standing Balance: Poor Dynamic Standing Balance: Poor ADL Skills - Self Feeding Self Feeding: Independent - Grooming Grooming: Mod Assist - Dressing Dressing UE: Mod Assist Dressing LE: Max Assist - Toilet Management Toileting Management: Mod Assist Functional Mobility - Transfers Sit to Stand: Mod Assist Stand to Sit: Mod Assist Stand Pivot Transfers: Mod Assist - Ambulation Weight Bearing Status: FWB Assistive Device Used: Rolling Walker Assistance needed with Ambulation: Min Assist - Safety Awareness Safety Awareness: Fair SHAYY INDEX SCORE: . Additional Treatment Performed - Time with patient Length of Evaluation: 19 Total treatment time: 20 Activities Do you enjoy playing games?: Yes Would you be interested in leaving your room for activities?: Yes Would you enjoy group activities?: Yes Do you have difficulty with your vision?: Yes Patient Interests:: Reading Books/Magazines, Watching Television, Visiting/Socializing Patient Education Patient Education: Education of diagnosis, Home Exercise Program, Education of Plan of Care Teaching Recipient: Patient Teaching Methods: Discussion Assessment Problem List:: Decreased level of function, Requires training/education, Decreased safety/Risk of falls, Weakness Rehab Potential: Good Further Therapy Indicated?: Yes Evaluation Complexity: HISTORY: Medium, EXAM OF BODY SYSTEMS: Medium, CLINICAL DECISION MAKING: Medium Patient's Goal(s): To be able to drive his tractor again. Short Term Goals - Goals GOAL 1: Pt to be able to complete sink level ADLS CGA with RW. Goal to be met by: 10/04/20 GOAL 2: Pt to increase dyn. std. balance to Fair- for ADLS. Goal to be met by: 10/04/20 GOAL 3: Pt to tolerate 15 minutes of activity with rests PRN. Goal to be met by: 10/04/20 Nurse Specialist Goals GOAL 1: Pt to be (I) with ADLS. Goal to be met by: 10/10/20 GOAL 2: Pt to be SUP with ADLS using the RW. Goal to be met by: 10/10/20 GOAL 3: Pt to tolerate 20 minutes of activity with rests PRN. Goal to be met by: 10/10/20 Plan Plan of Care: Therapeutic EX, Therapeutic Activity, Self-Care/Home Management Frequency of Treatment: 1-2 X day, as tolerated Duration of Treatment: 2 Weeks Anticipated Discharge Destination: Home Treatment Diagnosis (ICD 10 Codes): Z74.1 Need for assistance with personal care,M62.81 Muscle weakness. Has the Physician been added for Co-signature?: Yes
--- NOTE | 2020-09-27 15:57 | RS.PTINEVL ---
Subjective - Patient information Date of Evaluation: 09/27/20 Date of Arrival on Unit: 09/27/20 Admitted From:: Home Diagnosis: acute hypoxemic resp failure, B pneumonia Usual Living Arrangement: With Spouse Home Environment: House, Stairs (few), Rail Medical History: Hypertension, COPD, Diabetes, Arthritis LATEX ALLERGY?: No Surgical History: Knee Replacement, Hip Replacement Surgical History Comments:: B rotator cuff repairs Medications: see chart Subjective Information/ Patient Comments:: pt states that he has been going to outpatient PT at [facility] in [facility]. States he has been going there for several months. - Level of function Prior to this admission, the patient could do the following:: Independent Selfcare, Independent ADL's, Partially Dependent Ambulation Current Level of Function: Partially Dependent Current Equipment Used at Home: 2 Rollator, Glucose monitor Interventions - Objective Patient Orientation: Person, Place, Time, Situation Current Interventions: IV's, Oxygen (4liters), Telemetry Observation: pt with edema noted in BLE as well as discoloration Range of Motion - ROM Right Upper Extremity AROM: WFL's Left Upper Extremity AROM: WFL's Right Lower Extremity AROM: Slight limitation (Decreased B knee flex) Left Lower Extremity AROM: Slight limitation Muscle Strength - Muscle Strength Right Upper Extremity Strength: Mild Weakness (grossly 4-/5) Left Upper Extremity Strength: Mild Weakness (grossly 4-/5) Right Lower Extremity Strength: Mild Weakness (hip flex 3+/5, knee flex 3-/5, ext 4-/5, ankle DF/PF 4-/5) Left Lower Extremity Strength: Mild Weakness (hip flex 3+/5, knee flex 3-/5, ext 4-/5, ankle DF/PF 4-/5) Sensation - Sensation Right Upper Extremity Sensation: Intact/Normal Left Upper Extremity Sensation: Intact/Normal Right Lower Extremity Sensation: Impaired Left Lower Extremity Sensation: Intact/Normal Palpation Palpation Findings: None/Normal Balance - Sitting Balance and Reactions Static Sitting Balance: Fair Dynamic Sitting Balance: Poor Sitting Equilibrium Reactions: Delayed Left, Delayed Right Sitting Protective Reactions: Delayed Left, Delayed Right - Standing Balance and Reactions Static Standing Balance: Poor Dynamic Standing Balance: Poor Standing Equilibrium Reactions: Delayed Left, Delayed Right Standing Protective Reactions: Delayed Left, Delayed Right Functional Mobility - Bed Mobility Rolling R/L: CGA Scooting: Mod Assist, 2 person assist Sit to Supine: Mod Assist, 1 person assist - Transfers Sit to Stand: Min Assist, Mod Assist, 2 person assist Stand to Sit: Min Assist, 1 person assist - Safety Awareness Safety Awareness: Fair SHAYY INDEX SCORE: n/a Ambulation - Ambulation Assistive Device Used: Rolling Walker Orthotic/Prosthetic Device: No Distance: 18ft Assistance needed with Ambulation: Min Assist, 2 person assist Quality of Ambulation: with 5 liters O2(per respiratory) on 4 liters at rest Gait Deviations: Forward posture, Short stride, Deviates from path Ambulation Comments: O2 sats at rest 91% on 4 liters, decreased to 87% and respiratory (Hiro) turned O2 to 5 liters. Factors Affecting Ambulation: Decreased Balance, Breathing/O2 Saturation, Weakness, Decreased Safety, Limited Endurance Treatment time - Units charged Gait trainin - Time with patient Length of Evaluation: 18 Total treatment time: 32 Patient Education - Education Patient Education: Activity Modification, Education of Plan of Care Teaching Recipient: Patient Teaching Methods: Discussion Comments: discussion regarding POC as well as dc planning Assessment - Assessment Problem List:: Decreased level of function, Requires training/education, Decreased safety/Risk of falls, Weakness Rehab Potential: Fair Further Therapy Indicated?: Yes Candidate for Swing Bed for Therapy Services?: Feel pt may be a candidate for swing bed if able to tolerate therapy. Evaluation Complexity: HISTORY: Medium, EXAM OF BODY SYSTEMS: Medium, CLINICAL PRESENTATION: Medium, CLINICAL DECISION MAKING: Medium Patient's Goal(s): be able to walk, and go home Short Term Goals GOAL #1: pt demonstrate rolling with bedrails independently Goal to be met by: 10/01/20 GOAL #2: Transfer sup to/from sit min x 1 Goal to be met by: 10/01/20 GOAL #3: Transfer sit to/from stand min x 1 Goal to be met by: 10/01/20 GOAL #4: pt amb with rwx with O2 50ft with min x 1 Goal to be met by: 10/01/20 GOAL #5: Improve BLE strength 4/5 Goal to be met by: 10/01/20 Halfway Goals GOAL #1: Sup to/from sit to/from stand CGA Goal to be met by: 10/03/20 GOAL #2: pt amb functional household distances with rwx and O2 SBA Goal to be met by: 10/03/20 GOAL #3: Improved dyn stand balance fair Goal to be met by: 10/03/20 Plan Plan of Care: Therapeutic EX, Neuromuscular Re-Educ, Therapeutic Activity Frequency of Treatment: 1-2 X day, as tolerated Duration of Treatment: 1 Week Anticipated Discharge Destination: Home Treatment Diagnosis (ICD 10 Codes): difficulty walking R 26.2. impaired balance R 26.81. risk of falls Z91.81 Has the Physician been added for Co-signature?: Yes
--- NOTE | 2020-09-27 18:41 | PCM.PROG ---
S: still coughing, occasional blood tinged white sputum, no chills or sweats O: 99/51 98.6 72 18 O2 sat 94 on 4 liters cannula Heent neg Resp: diminished both bases, soft diffuse ronchi, with audible wheezes right anterior > left anterior lung velez CV 72, reg; without peripheral edema, no calf tenderness Abd: soft, non tender Neuro: alert, conversational, M/S/gait intact A: CAP HTN Diabetes Covid 19 negative P: sliding scale insulin, hold Metformin for 2 days after contrast, continue Zithromax and Ceftriaxone, blood cultures pending, decrease lisinopril and HCTZ by half as blood pressure running low; PT and OT eval and treatment; Pneumonia vaccine updated per protocol. discussed with returned case inspector and nurse Shelby.
[2020-09-27] MEDS: ROCEPHIN 1 GM/50 ML D5W 1 GM/50 ML BAG IV SCH (20:24)
[2020-09-27] MEDS: ZITHROMAX 500 MG in SODIUM CHLORIDE 250 ML IV SCH (21:27)
[2020-09-28 05:26] LABS: BASOPHILS % (AUTO) 0.2 % (0.0-3.0); EOSINOPHILS % (AUTO) 0.1 % (0.0-7.0); HEMATOCRIT 34.5 % (42.0-52.0); HEMOGLOBIN 11.4 g/dl (14.0-18.0); IMMATURE GRANULOCYTE # (AUTO) 0.1 (0.0-1.0); IMMATURE GRANULOCYTE % (AUTO) 0.7 % (0.0-5.0); LYMPHOCYTES # (AUTO) 1.1 K/uL (0.60-3.4); LYMPHOCYTES % (AUTO) 8.1 (10.0-50.0); MEAN CORPUSCULAR VOLUME 90.8 fl (80.0-94.0); MONOCYTES # (AUTO) 0.3 K/uL (0.4-2.0); MONOCYTES % (AUTO) 2.3 (0-10); NEUTROPHILS # (AUTO) 11.9 K/ul (2.0-6.9); NEUTROPHILS % (AUTO) 88.6 % (42.2-75.2); PLATELET COUNT 214 10^3/uL (140-440); RDW COEFFICIENT OF VARIATION 13.8 % (11.6-14.8); WHITE BLOOD COUNT 13.39 K/ul (4.2-10.2)
[2020-09-28] MEDS: SOLU-MEDROL 40 MG IVP SCH (05:29)
[2020-09-28] MEDS: ATROVENT HFA INHALER (PER PUFF-WITH SPACER) IH SCH ×3 (05:31→17:12)
[2020-09-28] MEDS: VENTOLIN HFA (PER PUFF-WITH SPACER) IH SCH ×3 (05:31→17:11)
[2020-09-28 05:44] LABS: BLOOD UREA NITROGEN 47.8 mg/dL (9-20); CARBON DIOXIDE 29.5 mmol/L (22-30.0); CHLORIDE 94.8 mmol/L (98-107); CREATININE 1.53 mg/dL (0.60-1.10); POTASSIUM 4.26 mmol/L (3.5-5.1); SODIUM 130.8 mmol/L (134.5-145)
[2020-09-28] MEDS: HUMULIN R SUBCUT PRN ×4 (06:26→20:58)
[2020-09-28] MEDS: MIRAPEX PO SCH ×2 (08:34→20:56)
[2020-09-28] MEDS: SINGULAIR PO SCH (08:35)
[2020-09-28] MEDS: ZESTRIL PO SCH (08:35)
[2020-09-28] MEDS: NEURONTIN PO SCH ×3 (08:35→20:57)
[2020-09-28] MEDS: FLOMAX PO SCH (08:35)
[2020-09-28] MEDS: AMARYL PO SCH ×3 (08:35→20:57)
[2020-09-28] MEDS: INDERAL PO SCH ×2 (08:36→20:57)
[2020-09-28] MEDS: FLONASE NAS SCH (08:36)
[2020-09-28] MEDS: HYDROCHLOROTHIAZIDE PO SCH (08:36)
[2020-09-28] MEDS: BALANCED B-100 PO SCH (08:36)
[2020-09-28] MEDS: CHLORASEPTIC SPRAY MM PRN (10:39)
[2020-09-28] MEDS: ROBITUSSIN SUGAR-FREE PO PRN ×2 (10:39→20:58)
[2020-09-28] MEDS: ROCEPHIN 1 GM/50 ML D5W 1 GM/50 ML BAG IV SCH (20:58)
[2020-09-28] MEDS: ZITHROMAX 500 MG in SODIUM CHLORIDE 250 ML IV SCH (22:03)
[2020-09-29] MEDS: VENTOLIN HFA (PER PUFF-WITH SPACER) IH SCH ×5 (00:49→23:21)
[2020-09-29] MEDS: ATROVENT HFA INHALER (PER PUFF-WITH SPACER) IH SCH ×5 (00:50→23:22)
[2020-09-29] MEDS: HUMULIN R SUBCUT PRN ×4 (06:33→20:18)
[2020-09-29 08:44] LABS: BASOPHILS % (AUTO) 0.2 % (0.0-3.0); EOSINOPHILS # (AUTO) 0.1 K/ul (0.0-0.7); EOSINOPHILS % (AUTO) 0.3 % (0.0-7.0); HEMATOCRIT 33.9 % (42.0-52.0); HEMOGLOBIN 11.3 g/dl (14.0-18.0); IMMATURE GRANULOCYTE # (AUTO) 0.6 (0.0-1.0); IMMATURE GRANULOCYTE % (AUTO) 3.2 % (0.0-5.0); LYMPHOCYTES # (AUTO) 2.3 K/uL (0.60-3.4); LYMPHOCYTES % (AUTO) 12.3 (10.0-50.0); MEAN CORPUSCULAR HEMOGLOBIN 30.3 pg (27.0-31.0); MEAN CORPUSCULAR HGB CONC 33.3 (31.8-35.4); MEAN CORPUSCULAR VOLUME 90.9 fl (80.0-94.0); MONOCYTES # (AUTO) 0.7 K/uL (0.4-2.0); MONOCYTES % (AUTO) 3.7 (0-10); NEUTROPHILS # (AUTO) 15.1 K/ul (2.0-6.9); NEUTROPHILS % (AUTO) 80.3 % (42.2-75.2); PLATELET COUNT 234 10^3/uL (140-440); RDW COEFFICIENT OF VARIATION 13.6 % (11.6-14.8); RED BLOOD COUNT 3.73 10^6/ul (4.70-6.10); WHITE BLOOD COUNT 18.71 K/ul (4.2-10.2)
[2020-09-29 09:16] LABS: ALBUMIN 2.97 g/dL (3.5-5.0); ALKALINE PHOSPHATASE 52.3 U/L (56-119); ASPARTATE AMINO TRANSFERASE 22.6 U/L (17-59); BILIRUBIN,TOTAL 0.3 mg/dL (0.2-1.3); BLOOD UREA NITROGEN 53.3 mg/dL (9-20); CALCIUM 8.56 mg/dL (8.4-10.2); CARBON DIOXIDE 34.3 mmol/L (22-30.0); CHLORIDE 94.6 mmol/L (98-107); CREATININE 1.6 mg/dL (0.60-1.10); GLUCOSE 207.9 mg/dL (74-106); POTASSIUM 4.54 mmol/L (3.5-5.1); SODIUM 133.3 mmol/L (134.5-145); TOTAL PROTEIN 5.98 g/dL (6.3-8.2)
[2020-09-29] MEDS: ROBITUSSIN SUGAR-FREE PO PRN (09:26)
[2020-09-29] MEDS: ZESTRIL PO SCH (09:26)
[2020-09-29] MEDS: SINGULAIR PO SCH (09:26)
[2020-09-29] MEDS: MIRAPEX PO SCH ×2 (09:26→20:15)
[2020-09-29] MEDS: NEURONTIN PO SCH ×3 (09:26→20:16)
[2020-09-29] MEDS: BALANCED B-100 PO SCH (09:27)
[2020-09-29] MEDS: FLOMAX PO SCH (09:27)
[2020-09-29] MEDS: HYDROCHLOROTHIAZIDE PO SCH (09:27)
[2020-09-29] MEDS: AMARYL PO SCH ×3 (09:27→20:17)
[2020-09-29] MEDS: INDERAL PO SCH ×2 (09:27→20:18)
[2020-09-29] MEDS: FLONASE NAS SCH (09:28)
[2020-09-29] MEDS: CHLORASEPTIC SPRAY MM PRN (09:28)
[2020-09-29] MEDS ORDERED: SODIUM CHLORIDE 1,000 ML IV ONE (10:00)
--- NOTE | 2020-09-29 10:45 | PCM.PROG ---
Objective: Vitals: T=97.1 F, P=63, R=20, DQ=738/64, SPO2=94 HEENT: oropharynx: not injected, no pustules, mildly dry[] Neck: [no nodes, arthritic] Lungs: [clear, poor respiratory excursion] CVS: [RRR] Abdomen: [Soft, nontender] Extremities: []decreased strength by pt's admission. c/o generalized weakness Neurological: []alert, oriented x 3 Skin: [] Lab/Tests/Diagnostic Imaging: [strep bacteremia. Consulted w [facility]PHarm[facility]; decision to change IV Rocephin to IV Vancomycin. IVF 1 liter NS over 4 hours. Order in for repeat labs after liter NS. (1) Community acquired pneumonia: Status: Acute Code(s): J18.9 - Pneumonia, unspecified organism SNOMED Code(s): 114531396 (2) Acute hypoxemic respiratory failure: Status: Acute Code(s): J96.01 - Acute respiratory failure with hypoxia SNOMED Code(s): 769873199
[2020-09-29] MEDS: VANCOMYCIN 1 GM in SODIUM CHLORIDE 250 ML IV SCH (11:24)
[2020-09-29 14:12] LABS: BASOPHILS # (AUTO) 0.1 K/uL (0-0.2); BASOPHILS % (AUTO) 0.3 % (0.0-3.0); EOSINOPHILS # (AUTO) 0.1 K/ul (0.0-0.7); EOSINOPHILS % (AUTO) 0.6 % (0.0-7.0); HEMATOCRIT 35.3 % (42.0-52.0); HEMOGLOBIN 11.7 g/dl (14.0-18.0); IMMATURE GRANULOCYTE # (AUTO) 0.5 (0.0-1.0); IMMATURE GRANULOCYTE % (AUTO) 3.3 % (0.0-5.0); LYMPHOCYTES # (AUTO) 1.8 K/uL (0.60-3.4); LYMPHOCYTES % (AUTO) 10.7 (10.0-50.0); MEAN CORPUSCULAR HEMOGLOBIN 30.2 pg (27.0-31.0); MEAN CORPUSCULAR HGB CONC 33.1 (31.8-35.4); MONOCYTES # (AUTO) 0.7 K/uL (0.4-2.0); MONOCYTES % (AUTO) 4.1 (0-10); NEUTROPHILS # (AUTO) 13.3 K/ul (2.0-6.9); PLATELET COUNT 242 10^3/uL (140-440); RDW COEFFICIENT OF VARIATION 13.8 % (11.6-14.8); RED BLOOD COUNT 3.88 10^6/ul (4.70-6.10); WHITE BLOOD COUNT 16.41 K/ul (4.2-10.2)
[2020-09-29 14:23] LABS: ALANINE AMINOTRANSFERASE 16.9 U/L (0-50); ALBUMIN 3.12 g/dL (3.5-5.0); ALKALINE PHOSPHATASE 53.5 U/L (56-119); ASPARTATE AMINO TRANSFERASE 20.8 U/L (17-59); BILIRUBIN,TOTAL 0.32 mg/dL (0.2-1.3); BLOOD UREA NITROGEN 50.3 mg/dL (9-20); CALCIUM 8.33 mg/dL (8.4-10.2); CARBON DIOXIDE 31.6 mmol/L (22-30.0); CHLORIDE 95.4 mmol/L (98-107); CREATININE 1.41 mg/dL (0.60-1.10); GLUCOSE 327.6 mg/dL (74-106); POTASSIUM 4.2 mmol/L (3.5-5.1); SODIUM 132.7 mmol/L (134.5-145); TOTAL PROTEIN 5.93 g/dL (6.3-8.2)
[2020-09-29] MEDS: GLUCOPHAGE PO SCH (17:32)
--- NOTE | 2020-09-29 17:59 | ED.PDOC ---
General ED Provider: Dr. DIPTI DAY Chief Complaint: Shortness of Air Stated Complaint: Pneumonia, Strep bacteremia Time Seen by Physician: 17:58 Mode of Arrival: Ambulance Information Source: Patient and EMT Primary Care Provider: MEY HOBSON Nursing and Triage Documentation Reviewed and Agree: Yes Does patient meet sepsis criteria?: No System Inflammatory Response Syndrome: Not Applicable Sepsis Protocol: For patient's 13 years and over: Temp is 96.8 and below OR 101 and greater Pulse >90 BPM Resp >20/minute Acutely Altered Mental Status Are patient's symptoms suggestive of a new infection, such as: -Pneumonia -Skin, Soft Tissue -Endocarditis -UTI -Bone, Joint Infection -Implantable Device -Acute Abdominal Infection -Wound Infection -Meningitis -Blood Stream Catheter Infection -Unknown Review of Systems Review Of Systems Constitutional: Reports Weakness All Other Systems: Reviewed and Negative [facility] Medical History (Updated 09/27/20 @ 07:03 by LISA ANN) Diabetes Hypertension Stroke Family History (Updated 09/27/20 @ 01:53 by LISA ANN) FATHER Coronary artery disease Hypertension Diabetes Mother Coronary artery disease Hypertension Diabetes SISTER Coronary artery disease Hypertension Social History (Updated 09/27/20 @ 01:52 by LISA ANN) Smoking and tobacco status: Current every day smoker Tobacco type: cigarettes Smoking packs per day: 0.25 Smoking cigarettes per day: 5.0 Tobacco: How many years used: 70 Surgical History (Updated 09/27/20 @ 01:52 by LISA ANN) History of hip replacement, total Total knee replacement status Physical Exam Physical Exam Appearance: Reports Ill-appearing Critical Care Note Critical Care Note Total Critical Care Time (mins): 20 Course Course Hematology/Chemistry: 09/29/20 14:00 09/29/20 14:00 Orders, Labs, Meds: Lab Review 09/26/20 09/26/20 09/26/20 20:57 21:15 21:15 WBC 10.29 H RBC 4.22 L Hgb 12.9 L Hct 38.0 L MCV 90.0 MCH 30.6 MCHC 33.9 RDW Coeff of Olaf 13.7 Plt Count 196 Neutrophils % (Manual) 64.0 Band Neutrophils % 18.0 H Lymphocytes % (Manual) 9.0 L Monocytes % (Manual) 9.0 Anisocytosis Not present Puncture Site Rrad O2 Saturation 88.9 L ABG pH 7.46 H ABG pCO2 41.0 ABG pO2 53.0 L* ABG HCO3 29.2 H ABG Total CO2 30.5 H ABG Base Excess 5.4 H Migel Test + FiO2 % 21.0 Sodium 134.7 Potassium 3.84 Chloride 98.1 Carbon Dioxide 30.5 H Anion Gap 9.94 BUN 32.0 H Creatinine 1.30 H Estimated GFR (MDRD) 53.00 BUN/Creatinine Ratio 24.61 Glucose 204.6 H Lactic Acid Calcium 8.41 Total Bilirubin 0.81 AST 22.1 ALT 15.4 Alkaline Phosphatase 65.8 Total Creatine Kinase 119.9 CK-MB (CK-2) 5.260 H* CK-MB (CK-2) % 4.3800 Troponin I 0.016 NT-Pro-B Natriuret Pep 1850.000 H Total Protein 6.50 Albumin 3.47 L Globulin 3.03 Albumin/Globulin Ratio 1.14 Procalcitonin D-Dimer Adenovirus (PCR) B. pertussis DNA (PCR) B.parapertussis DNA PCR C. pneumoniae DNA (PCR) Coronavirus OC43 (PCR) Coronavirus HKU1 (PCR) Coronavirus 229E (PCR) Coronavirus NL63 (PCR) Human Metapneumovir PCR Influenza Type A (PCR) Influenza B (RT-PCR) M. pneumoniae (PCR) Parainfluenza 1 (PCR) Parainfluenza 2 (PCR) Parainfluenza 3 (PCR) Parainfluenza 4 (PCR) RSV (PCR) Entero/Rhino (PCR) SARS-CoV-2 (PCR) 09/26/20 09/26/20 09/26/20 21:15 21:15 21:15 WBC RBC Hgb Hct MCV MCH MCHC RDW Coeff of Olaf Plt Count Neutrophils % (Manual) Band Neutrophils % Lymphocytes % (Manual) Monocytes % (Manual) Anisocytosis Puncture Site O2 Saturation ABG pH ABG pCO2 ABG pO2 ABG HCO3 ABG Total CO2 ABG Base Excess Migel Test FiO2 % Sodium Potassium Chloride Carbon Dioxide Anion Gap BUN Creatinine Estimated GFR (MDRD) BUN/Creatinine Ratio Glucose Lactic Acid 0.96 Calcium Total Bilirubin AST ALT Alkaline Phosphatase Total Creatine Kinase CK-MB (CK-2) CK-MB (CK-2) % Troponin I NT-Pro-B Natriuret Pep Total Protein Albumin Globulin Albumin/Globulin Ratio Procalcitonin 7.02 D-Dimer 2104.87 H Adenovirus (PCR) B. pertussis DNA (PCR) B.parapertussis DNA PCR C. pneumoniae DNA (PCR) Coronavirus OC43 (PCR) Coronavirus HKU1 (PCR) Coronavirus 229E (PCR) Coronavirus NL63 (PCR) Human Metapneumovir PCR Influenza Type A (PCR) Influenza B (RT-PCR) M. pneumoniae (PCR) Parainfluenza 1 (PCR) Parainfluenza 2 (PCR) Parainfluenza 3 (PCR) Parainfluenza 4 (PCR) RSV (PCR) Entero/Rhino (PCR) SARS-CoV-2 (PCR) 09/26/20 22:00 WBC RBC Hgb Hct MCV MCH MCHC RDW Coeff of Olaf Plt Count Neutrophils % (Manual) Band Neutrophils % Lymphocytes % (Manual) Monocytes % (Manual) Anisocytosis Puncture Site O2 Saturation ABG pH ABG pCO2 ABG pO2 ABG HCO3 ABG Total CO2 ABG Base Excess Migel Test FiO2 % Sodium Potassium Chloride Carbon Dioxide Anion Gap BUN Creatinine Estimated GFR (MDRD) BUN/Creatinine Ratio Glucose Lactic Acid Calcium Total Bilirubin AST ALT Alkaline Phosphatase Total Creatine Kinase CK-MB (CK-2) CK-MB (CK-2) % Troponin I NT-Pro-B Natriuret Pep Total Protein Albumin Globulin Albumin/Globulin Ratio Procalcitonin D-Dimer Adenovirus (PCR) Not detected B. pertussis DNA (PCR) Not detected B.parapertussis DNA PCR Not detected C. pneumoniae DNA (PCR) Not detected Coronavirus OC43 (PCR) Not detected Coronavirus HKU1 (PCR) Not detected Coronavirus 229E (PCR) Not detected Coronavirus NL63 (PCR) Not detected Human Metapneumovir PCR Not detected Influenza Type A (PCR) Not detected Influenza B (RT-PCR) Not detected M. pneumoniae (PCR) Not detected Parainfluenza 1 (PCR) Not detected Parainfluenza 2 (PCR) Not detected Parainfluenza 3 (PCR) Not detected Parainfluenza 4 (PCR) Not detected RSV (PCR) Not detected Entero/Rhino (PCR) Detected H SARS-CoV-2 (PCR) Not detected Orders Category Date Time Status ABG DRAW REQUEST Stat CARDIO 09/26/20 20:58 Completed ECHOCARDIOGRAM 2D-M MODE Routine CARDIO 12/11/20 00:08 Completed EKG-(ED ONLY) Stat CARDIO 09/26/20 20:57 Completed METERED DOSE INHALATION Routine CARDIO 09/27/20 00:16 Active OXYGEN Routine CARDIO 09/27/20 00:08 Active ACTIVITY .Early Mobilization for VTE Prevention CARE 09/27/20 00:09 Active INTAKE & OUTPUT Q8HR CARE 09/27/20 00:08 Active NPO REMINDER: IMAGING ONCE CARE 09/26/20 22:01 Completed VITAL SIGNS Q4HR CARE 09/27/20 00:09 Active VTE PREVENTION .ROVERTO and SCD On AM/Off PM CARE 09/27/20 00:08 Active CARDIAC DIET DIETARY 09/27/20 Breakfast Ordered ED ACCUCHECK ASSESSMENT .ONCE EMERGENCY 09/27/20 00:15 Active ED APPLY O2 .ONCE EMERGENCY 09/26/20 20:57 Active ED IV/MEDIPORT/POWERPORT .ONCE EMERGENCY 09/26/20 20:57 Active ABG Stat LAB 09/26/20 20:57 Completed BASIC METABOLIC PANEL DAILY@0600 LAB 09/27/20 05:30 Completed BASIC METABOLIC PANEL DAILY@0600 LAB 09/28/20 05:20 Completed BLOOD CULTURE (ED ONLY) Stat LAB 09/26/20 21:15 Completed CBC W/ AUTO DIFF DAILY@0600 LAB 09/27/20 05:30 Completed CBC W/ AUTO DIFF DAILY@0600 LAB 09/28/20 05:20 Completed CBC W/ AUTO DIFF Stat LAB 09/26/20 21:15 Completed COMPREHENSIVE METABOLIC PANEL Stat LAB 09/26/20 21:15 Completed CREATINE KINASE Q8H LAB 09/27/20 05:30 Completed CREATINE KINASE Q8H LAB 09/27/20 14:24 Completed CREATINE KINASE Stat LAB 09/26/20 21:15 Completed D-DIMER Stat LAB 09/26/20 21:15 Completed LACTIC ACID Stat LAB 09/26/20 21:15 Completed MANUAL DIFFERENTIAL Routine LAB 09/27/20 05:30 Completed MANUAL DIFFERENTIAL Stat LAB 09/26/20 21:15 Completed NT-PROBNP Stat LAB 09/26/20 21:15 Completed POS BC ID AND DINORAH Stat LAB 09/26/20 21:15 Completed POS BC ID AND DINORAH Stat LAB 09/26/20 21:15 Completed PROCALCITONIN Stat LAB 09/26/20 21:15 Completed RESPIRATORY PANEL 2.1 (PCR) Stat LAB 09/26/20 22:00 Completed TROPONIN I Q8H LAB 09/27/20 05:30 Completed TROPONIN I Q8H LAB 09/27/20 14:24 Completed TROPONIN I Stat LAB 09/26/20 21:15 Completed 0.9 % Sodium Chloride [Saline Flush] MEDS 09/26/20 20:57 Active 1 syr IVF PRN PRN Acetaminophen [Tylenol] MEDS 09/27/20 00:08 Active 650 mg PO Q4H PRN Albuterol Inhaler (Single Pt) [Proair Hfa (Single MEDS 09/26/20 21:10 Discontinued Patient Use)] 2 puff IH ONCE STA Albuterol Inhaler(with Spacer) [Ventolin Hfa (Per Puff- MEDS 09/27/20 06:00 Discontinued with Spacer)] 2 puff IH RTQID Aspirin [Aspirin EC] MEDS 09/27/20 00:52 Active 325 mg PO DAILY PRN Azithromycin Inj [Zithromax] 500 mg MEDS 09/27/20 00:13 Discontinued 0.9 % Sodium Chloride [Sodium Chloride] 250 ml IV ONCE Ceftriaxone/D5w 1 gm Premix [Rocephin 1 gm/50 ml D5w] MEDS 09/27/20 21:00 Discontinued 1 gm in 50 ml IV BEDTIME Ceftriaxone/D5w 1 gm Premix [Rocephin 1 gm/50 ml D5w] MEDS 09/27/20 00:06 Discontinued 1 gm in 50 ml IV ONCE Fluticasone Propionate [Flonase] MEDS 09/27/20 09:00 Active 1 spray ELENA DAILY Gabapentin [Neurontin] MEDS 09/27/20 09:00 Active 600 mg PO TID Glimepiride [Amaryl] MEDS 09/27/20 09:00 Active 1 mg PO TID Hydrochlorothiazide MEDS 09/27/20 09:00 Discontinued 50 mg PO DAILY Ipratropium Inhaler(Spacer) [Atrovent Hfa Inhaler (Per MEDS 09/26/20 21:10 Discontinued Puff-with Spacer)] 2 puff IH ONCE STA Ipratropium Inhaler(Spacer) [Atrovent Hfa Inhaler (Per MEDS 09/27/20 06:00 Active Puff-with Spacer)] 2 puff IH RTQ6H Lisinopril [Zestril] MEDS 09/27/20 09:00 Discontinued 40 mg PO DAILY Metformin HCl [Glucophage] MEDS 09/27/20 09:00 Active 500 mg PO BIDWM Montelukast Sodium [Singulair] MEDS 09/27/20 09:00 Active 10 mg PO DAILY Ondansetron HCl/Pf [Zofran 4 mg/2 ml] MEDS 09/27/20 00:08 Active 4 mg IVP Q6H PRN Pramipexole Di-HCl [Mirapex] MEDS 09/27/20 09:00 Active 1.5 mg PO BID Propranolol HCl [Inderal] MEDS 09/27/20 09:00 Active 20 mg PO BID Terazosin HCl [Hytrin] MEDS 09/27/20 09:00 Discontinued 2 mg PO DAILY RESUSCITATION STATUS Routine OTHERS 09/27/20 00:[address] CHEST PE PROTOCOL Stat RADS 09/26/20 22:01 Completed Medications Generic Name Dose Route Start Last Admin Trade Name Freq PRN Reason Stop Dose Admin Acetaminophen 650 mg 09/27/20 00:08 Acetaminophen 325 Mg Tablet PO Q4H PRN Fever >101 Albuterol Sulfate 2 puff 09/27/20 06:00 09/29/20 17:52 Albuterol Sulfate (Ventolin Hfa) 18 Gm 1 Puff With Spacer IH 2 puff RTQ6H VINOD Administration Aspirin 325 mg 09/27/20 00:52 Aspirin 325 Mg Tablet.Dr PO DAILY PRN joint pain Fluticasone Propionate 1 spray 09/27/20 09:00 09/29/20 09:28 Fluticasone Propionate 16 Gm Nasal [place] ELENA 1 spray DAILY VINOD Administration Gabapentin 600 mg 09/27/20 09:00 09/29/20 15:24 Gabapentin 300 Mg Capsule PO 600 mg TID VINOD Administration Glimepiride 1 mg 09/27/20 09:00 09/29/20 15:25 Glimepiride 2 Mg Tablet PO 1 mg TID VINOD Administration Guaifenesin 10 ml 09/27/20 08:51 09/29/20 09:26 Guaifenesin 10 Ml/200 Mg Cup PO 10 ml Q4H PRN Administration Cough Hydrochlorothiazide 25 mg 09/28/20 09:00 09/29/20 09:27 Hydrochlorothiazide 25 Mg Tablet PO 25 mg DAILY VINOD Administration Vancomycin HCl 1 gm/ Sodium 250 mls @ 250 mls/hr 09/29/20 10:30 09/29/20 11:24 Chloride IV 10/02/20 10:29 250 mls/hr DAILY IVNOD Administration Insulin Human Regular 0 unit 09/27/20 10:11 09/29/20 17:32 Insulin Regular, Human 100 Unit/Ml (3ml) Vial SUBCUT 6 unit PRN PRN Administration Hyperglycemia Protocol Ipratropium [place] 2 puff 09/27/20 06:00 09/29/20 17:54 Ipratropium [place] 12.9 Gm Hfa Inhaler Per Puff With Spacer IH 2 puff RTQ6H VINOD Administration Lisinopril 20 mg 09/28/20 09:00 09/29/20 09:26 Lisinopril 10 Mg Tablet PO 20 mg DAILY VINOD Administration Loratadine 10 mg 09/27/20 07:18 09/27/20 08:59 Loratadine 10 Mg Tablet PO 10 mg DAILY PRN Administration Allergy Symptoms Metformin HCl 500 mg 09/27/20 09:00 09/29/20 17:32 Metformin Hcl 500 Mg Tablet PO 500 mg BIDWM VINOD Administration Montelukast Sodium 10 mg 09/27/20 09:00 09/29/20 09:26 Montelukast Sodium 10 Mg Tablet PO 10 mg DAILY VINOD Administration Ondansetron HCl 4 mg 09/27/20 00:08 Ondansetron Hcl/Pf 4 Mg/2 Ml Sdv IVP Q6H PRN Nausea / Vomiting Phenol/Menthol 1 spray 09/28/20 10:04 09/29/20 09:28 Phenol 20 Ml [place] MM 1 spray Q2H PRN Administration SORE THROAT Polyethylene Glycol 17 gm 09/27/20 08:47 Polyethylene Glycol 17 Gm Powd.Pack PO DAILY PRN Constipation Pramipexole Dihydrochloride 1.5 mg 09/27/20 09:00 09/29/20 09:26 Pramipexole Di-Hcl 1 Mg Tablet PO 1.5 mg BID VINOD Administration Propranolol HCl 20 mg 09/27/20 09:00 09/29/20 09:27 Propranolol Hcl 20 Mg Tablet PO 20 mg BID VINOD Administration Sodium Chloride 1 syr 09/26/20 20:57 09/27/20 10:34 0.9% Sodium Chloride 10 Ml Disp.Syrin IVF 1 syr PRN PRN Administration To flush IV Sodium Chloride 1 syr 09/27/20 13:00 09/29/20 13:59 0.9% Sodium Chloride 10 Ml Disp.Syrin IVF 1 syr Q8HR VINOD Administration Tamsulosin HCl 0.4 mg 09/27/20 09:30 09/29/20 09:27 Tamsulosin Hcl 0.4 Mg Cap.Er.24h PO 0.4 mg DAILY VINOD Administration Vitamin B Complex 1 tab 09/27/20 09:00 09/29/20 09:27 Vitamin B-100 Complex 1 Tablet PO 1 tab DAILY VINOD Administration Discontinued Medications Generic Name Dose Route Start Last Admin Trade Name Freq PRN Reason Stop Dose Admin Albuterol Sulfate 2 puff 09/26/20 21:10 09/26/20 21:59 Albuterol Sulfate 8.5 Gm Inhaler (Single Patient Use) 09/26/20 21:11 2 puff ONCE STA Administration Albuterol Sulfate 2 puff 09/27/20 06:00 Albuterol Sulfate (Ventolin Hfa) 18 Gm 1 Puff With Spacer RTQID [facility] Hydrochlorothiazide 50 mg 09/27/20 09:00 09/27/20 08:58 Hydrochlorothiazide 25 Mg Tablet PO 50 mg DAILY VINOD Administration CEFTRIAXONE/D5W 1 GM PREMIX 1 gm in 50 mls @ 75 mls/hr 09/27/20 00:06 09/27/20 00:43 Rocephin 1 Gm/50 Ml D5w IV 09/27/20 00:45 75 mls/hr ONCE STA Administration CEFTRIAXONE/D5W 1 GM PREMIX 1 gm in 50 mls @ 75 mls/hr 09/27/20 21:00 09/28 20:58 Rocephin 1 Gm/50 Ml D5w IV 09/30/20 22:00 75 mls/hr BEDTIME VINOD Administration Azithromycin 500 mg/ Sodium 250 mls @ 125 mls/hr 09/27/20 00:13 09/27/20 01:58 Chloride IV 09/27/20 02:12 125 mls/hr ONCE STA Administration Azithromycin 500 mg/ Sodium 250 mls @ 125 mls/hr 09/27/20 21:00 09/28/20 22:03 Chloride IV 09/28/20 22:00 125 mls/hr BEDTIME VINOD Administration Sodium Chloride 1,000 mls @ 250 mls/hr 09/29/20 10:00 09/29/20 10:13 Sodium Chloride IV 09/29/20 13:59 250 mls/hr .Q4H ONE Administration Ipratropium [place] 2 puff 09/26/20 21:10 09/26/20 21:59 Ipratropium [place] 12.9 Gm Hfa Inhaler Per Puff With Spacer IH 09/26/20 21:11 2 puff ONCE STA Administration Lisinopril 40 mg 09/27/20 09:00 09/27/20 08:58 Lisinopril 40 Mg Tablet PO 40 mg DAILY VINOD Administration Methylprednisolone Sodium Succinate 40 mg 09/27/20 09:00 09/28/20 05:29 Methylprednisolone Sod Succ/Pf 40 Mg/Ml Vial IVP 40 mg Q6HR VINOD Administration Pneumococcal Polyvalent Vaccine 25 mcg 09/27/20 14:30 09/27/20 14:25 Pneumococcal 23-[place] P-Sac Vac 25 Mcg/0.5 Ml Syringe IM 09/27/20 14:31 25 mcg .ONCE ONE Administration Terazosin HCl 2 mg 09/27/20 09:00 09/27/20 08:57 Terazosin Hcl 1 Mg Capsule PO 2 mg DAILY VINOD Administration Vital Signs: Temp Pulse Resp BP Pulse Ox 09/26/20 20:42 99.2 F 94 H 24 102/56 L 87 L Discharge Plan Discharge Patient Disposition: ADMITTED INPATIENT Discharge Problem: Acute hypoxemic respiratory failure Community acquired pneumonia Qualifiers: Laterality: unspecified laterality Qualified Code(s): J18.9 - Pneumonia, unspecified organism ED Provider: LEI SALAS Condition: Fair Physician Progress Note: [16:30: Pt in bed, exhausted, on 4 liters of 02 nasal cannula. IVF not run in yet since interrupted by patient's shower. Discussed w RN Shirlene that cbc, cmp to be drawn after IVF have run in. AM lab orders to remain. 17:58 Verbal order for ABG while pt on 02. RN will call with O2 results, as well as order placed that pm shift will inform pm ER doc of same. ]
[2020-09-29 18:23] LABS: BASOPHILS # (AUTO) 0.1 K/uL (0-0.2); BASOPHILS % (AUTO) 0.4 % (0.0-3.0); EOSINOPHILS # (AUTO) 0.2 K/ul (0.0-0.7); EOSINOPHILS % (AUTO) 0.9 % (0.0-7.0); HEMATOCRIT 35.3 % (42.0-52.0); HEMOGLOBIN 11.8 g/dl (14.0-18.0); IMMATURE GRANULOCYTE # (AUTO) 0.8 (0.0-1.0); IMMATURE GRANULOCYTE % (AUTO) 4.9 % (0.0-5.0); LYMPHOCYTES % (AUTO) 11.8 (10.0-50.0); MEAN CORPUSCULAR HEMOGLOBIN 30.3 pg (27.0-31.0); MEAN CORPUSCULAR HGB CONC 33.4 (31.8-35.4); MEAN CORPUSCULAR VOLUME 90.5 fl (80.0-94.0); MONOCYTES # (AUTO) 0.7 K/uL (0.4-2.0); MONOCYTES % (AUTO) 4.5 (0-10); NEUTROPHILS # (AUTO) 12.8 K/ul (2.0-6.9); NEUTROPHILS % (AUTO) 77.5 % (42.2-75.2); PLATELET COUNT 236 10^3/uL (140-440); RDW COEFFICIENT OF VARIATION 13.6 % (11.6-14.8); WHITE BLOOD COUNT 16.55 K/ul (4.2-10.2)
[2020-09-29 18:26] LABS: ABG BASE EXCESS 4.8 (-2.0-2.0); ABG PH 7.37 (7.35-7.45)
[2020-09-29 18:27] LABS: ABG HCO3 30.1 (22.0-26.0); ABG OXYGEN SATURATION 99.4 % (95-100); ABG TCO2 31.7 (22.0-28.0)
[2020-09-29 18:34] LABS: ALANINE AMINOTRANSFERASE 18.4 U/L (0-50); ALBUMIN 3.23 g/dL (3.5-5.0); ASPARTATE AMINO TRANSFERASE 21.5 U/L (17-59); BILIRUBIN,TOTAL 0.35 mg/dL (0.2-1.3); BLOOD UREA NITROGEN 46.7 mg/dL (9-20); CALCIUM 8.36 mg/dL (8.4-10.2); CARBON DIOXIDE 29.5 mmol/L (22-30.0); CHLORIDE 96.6 mmol/L (98-107); CREATININE 1.38 mg/dL (0.60-1.10); GLUCOSE 323.8 mg/dL (74-106); POTASSIUM 3.9 mmol/L (3.5-5.1); SODIUM 132.9 mmol/L (134.5-145); TOTAL PROTEIN 6.18 g/dL (6.3-8.2)
--- NOTE | 2020-09-29 18:41 | DI ---
Exam: Chest one-view History: Shortness of breath FINDINGS: Diminished lung volumes. Normal cardiomediastinal contours. Normal pulmonary vasculature . Bibasilar lung opacities stable or improved from CT 09/26/2020. No acute chest wall abnormality. Impression: Bibasilar consolidative lung opacities stable or improved from CT 09/26/2020.
[2020-09-30] MEDS: ATROVENT HFA INHALER (PER PUFF-WITH SPACER) IH SCH ×4 (04:54→23:30)
[2020-09-30] MEDS: VENTOLIN HFA (PER PUFF-WITH SPACER) IH SCH ×4 (04:54→23:30)
[2020-09-30 05:47] LABS: HEMATOCRIT 36.5 % (42.0-52.0); HEMOGLOBIN 12.3 g/dl (14.0-18.0); MEAN CORPUSCULAR HEMOGLOBIN 30.3 pg (27.0-31.0); MEAN CORPUSCULAR HGB CONC 33.7 (31.8-35.4); MEAN CORPUSCULAR VOLUME 89.9 fl (80.0-94.0); PLATELET COUNT 256 10^3/uL (140-440); RDW COEFFICIENT OF VARIATION 13.5 % (11.6-14.8); RED BLOOD COUNT 4.06 10^6/ul (4.70-6.10); WHITE BLOOD COUNT 12.81 K/ul (4.2-10.2)
[2020-09-30 05:56] LABS: ANISOCYTOSIS NOT PRESENT (NOT PRESENT)
[2020-09-30 06:00] LABS: ALANINE AMINOTRANSFERASE 17.6 U/L (0-50); ALBUMIN 3.06 g/dL (3.5-5.0); ALKALINE PHOSPHATASE 59.2 U/L (56-119); ASPARTATE AMINO TRANSFERASE 19.8 U/L (17-59); BILIRUBIN,TOTAL 0.39 mg/dL (0.2-1.3); BLOOD UREA NITROGEN 39.3 mg/dL (9-20); CALCIUM 8.53 mg/dL (8.4-10.2); CARBON DIOXIDE 35.2 mmol/L (22-30.0); CHLORIDE 97.9 mmol/L (98-107); CREATININE 1.16 mg/dL (0.60-1.10); GLUCOSE 130.9 mg/dL (74-106); POTASSIUM 3.93 mmol/L (3.5-5.1); TOTAL PROTEIN 5.99 g/dL (6.3-8.2)
[2020-09-30] MEDS: MIRAPEX PO SCH ×2 (08:41→20:19)
[2020-09-30] MEDS: NEURONTIN PO SCH ×3 (08:42→20:20)
[2020-09-30] MEDS: INDERAL PO SCH ×2 (08:42→20:18)
[2020-09-30] MEDS: BALANCED B-100 PO SCH (08:42)
[2020-09-30] MEDS: ZESTRIL PO SCH (08:42)
[2020-09-30] MEDS: GLUCOPHAGE PO SCH ×2 (08:43→17:34)
[2020-09-30] MEDS: HYDROCHLOROTHIAZIDE PO SCH (08:43)
[2020-09-30] MEDS: FLOMAX PO SCH (08:43)
[2020-09-30] MEDS: SINGULAIR PO SCH (08:43)
[2020-09-30] MEDS: AMARYL PO SCH ×3 (08:43→20:20)
[2020-09-30] MEDS: FLONASE NAS SCH (08:44)
[2020-09-30] MEDS: VANCOMYCIN 1 GM in SODIUM CHLORIDE 250 ML IV SCH (08:44)
[2020-09-30] MEDS: HUMULIN R SUBCUT PRN ×3 (11:55→20:21)
--- NOTE | 2020-09-30 19:03 | PCM.PROG ---
Objective: Vitals: T=98.2 F, P=63, R=18, EU=146/68, SPO2=94 HEENT: [no change since this morning. oropharynx, nose clear. ] Neck: []not supple. no nodes Lungs: [] diminished breath sounds, poor excursion CVS: []RRR Abdomen: []soft, nontender Extremities: []diminished strength and ROM Neurological: []Alert, oriented x 3, CN intact, sensation intact Skin: [] Lab/Tests/Diagnostic Imaging: [] Pt had PT today and is "exhausted." Pt not well motivated to move about. (1) Community acquired pneumonia: Status: Acute Code(s): J18.9 - Pneumonia, unspecified organism SNOMED Code(s): 299275804 (2) Acute hypoxemic respiratory failure: Status: Acute Code(s): J96.01 - Acute respiratory failure with hypoxia SNOMED Code(s): 676492188
[2020-10-01] MEDS: ROBITUSSIN SUGAR-FREE PO PRN (04:18)
[2020-10-01] MEDS: VENTOLIN HFA (PER PUFF-WITH SPACER) IH SCH ×4 (05:05→23:05)
[2020-10-01] MEDS: ATROVENT HFA INHALER (PER PUFF-WITH SPACER) IH SCH ×4 (05:05→23:05)
[2020-10-01 05:52] LABS: HEMATOCRIT 36.1 % (42.0-52.0); MEAN CORPUSCULAR HEMOGLOBIN 29.8 pg (27.0-31.0); MEAN CORPUSCULAR HGB CONC 33.2 (31.8-35.4); MEAN CORPUSCULAR VOLUME 89.6 fl (80.0-94.0); PLATELET COUNT 242 10^3/uL (140-440); RDW COEFFICIENT OF VARIATION 13.3 % (11.6-14.8); RED BLOOD COUNT 4.03 10^6/ul (4.70-6.10); WHITE BLOOD COUNT 12.86 K/ul (4.2-10.2)
[2020-10-01 05:54] LABS: ANISOCYTOSIS NOT PRESENT (NOT PRESENT)
[2020-10-01 06:03] LABS: ALANINE AMINOTRANSFERASE 15.4 U/L (0-50); ALBUMIN 3.08 g/dL (3.5-5.0); ALKALINE PHOSPHATASE 58.2 U/L (56-119); BILIRUBIN,TOTAL 0.47 mg/dL (0.2-1.3); BLOOD UREA NITROGEN 20.9 mg/dL (9-20); CALCIUM 8.64 mg/dL (8.4-10.2); CARBON DIOXIDE 35.6 mmol/L (22-30.0); CHLORIDE 96.3 mmol/L (98-107); CREATININE 0.88 mg/dL (0.60-1.10); GLUCOSE 189.1 mg/dL (74-106); POTASSIUM 4.01 mmol/L (3.5-5.1); SODIUM 134.5 mmol/L (134.5-145); TOTAL PROTEIN 5.96 g/dL (6.3-8.2)
[2020-10-01] MEDS: HUMULIN R SUBCUT PRN ×4 (06:41→20:32)
[2020-10-01] MEDS: ZESTRIL PO SCH (09:47)
[2020-10-01] MEDS: BALANCED B-100 PO SCH (09:47)
[2020-10-01] MEDS: HYDROCHLOROTHIAZIDE PO SCH (09:47)
[2020-10-01] MEDS: GLUCOPHAGE PO SCH ×2 (09:48→16:20)
[2020-10-01] MEDS: INDERAL PO SCH ×2 (09:48→20:31)
[2020-10-01] MEDS: MIRAPEX PO SCH ×2 (09:48→20:30)
[2020-10-01] MEDS: NEURONTIN PO SCH ×3 (09:48→20:29)
[2020-10-01] MEDS: FLOMAX PO SCH (09:49)
[2020-10-01] MEDS: SINGULAIR PO SCH (09:49)
[2020-10-01] MEDS: AMARYL PO SCH ×3 (09:49→20:30)
[2020-10-01] MEDS: FLONASE NAS SCH (09:50)
[2020-10-01] MEDS: VANCOMYCIN 1 GM in SODIUM CHLORIDE 250 ML IV SCH ×2 (09:51→20:31)
--- NOTE | 2020-10-01 11:41 | PCM.PROG ---
Objective: Vitals: T=98.0 F, P=69, R=20, BA=117/78, SPO2=94 HEENT: [normocephalic, EOMs wnl, PERRL, throat conjested, blood tinged sputum.] Neck: []not supple. Lungs: [] rhonchi, rales CVS: []RRR Abdomen: []soft, nontender, nl bowel sounds. Extremities: []weak motor and ROM. Neurological: []hander in intact, sensation nl, motor/weak Skin: []no changes, nl color, warm. Lab/Tests/Diagnostic Imaging: [CXR, portable.] Discussed pt w Vest Tailor, Mauro, who recommends Swing Bed when pt stable. Also spoke w Mrs. Adams. She is concerned that she cannot take care of pt when he is d/c to home. (1) Community acquired pneumonia: Status: Acute Code(s): J18.9 - Pneumonia, unspecified organism SNOMED Code(s): 477380215 (2) Acute hypoxemic respiratory failure: Status: Acute Code(s): J96.01 - Acute respiratory failure with hypoxia SNOMED Code(s): 687390585
[2020-10-01 12:35] LABS: ABG PH 7.44 (7.35-7.45)
[2020-10-01 12:36] LABS: ABG BASE EXCESS 13.2 (-2.0-2.0); ABG HCO3 37.4 (22.0-26.0); ABG TCO2 39.1 (22.0-28.0)
[2020-10-01 12:37] LABS: ABG OXYGEN SATURATION 87.1 % (95-100)
--- NOTE | 2020-10-01 13:37 | DI ---
EXAM: CHEST FRONTAL VIEW HISTORY: Pneumonia. COMPARISON: 09/29/2020 FINDINGS: Low lung volumes. Prominent heart size. There is at least mild atherosclerotic disease. Patchy bibasilar densities are slightly improved since prior study and may represent residual pneumo daniela or atelectasis. There is no central vascular congestion, visible pleural fluid or pneumothorax. IMPRESSION: 1. Improving basilar consolidations.
[2020-10-02] MEDS: ATROVENT HFA INHALER (PER PUFF-WITH SPACER) IH SCH ×4 (05:20→23:45)
[2020-10-02] MEDS: VENTOLIN HFA (PER PUFF-WITH SPACER) IH SCH ×4 (05:20→23:45)
[2020-10-02] MEDS: HUMULIN R SUBCUT PRN ×4 (05:53→20:47)
[2020-10-02] MEDS: BALANCED B-100 PO SCH (10:16)
[2020-10-02] MEDS: VANCOMYCIN 1 GM in SODIUM CHLORIDE 250 ML IV SCH ×2 (10:16→21:34)
[2020-10-02] MEDS: ZESTRIL PO SCH (10:16)
[2020-10-02] MEDS: MIRAPEX PO SCH ×2 (10:17→20:46)
[2020-10-02] MEDS: FLOMAX PO SCH (10:17)
[2020-10-02] MEDS: NEURONTIN PO SCH ×3 (10:17→20:46)
[2020-10-02] MEDS: HYDROCHLOROTHIAZIDE PO SCH (10:17)
[2020-10-02] MEDS: SINGULAIR PO SCH (10:17)
[2020-10-02] MEDS: FLONASE NAS SCH (10:18)
[2020-10-02] MEDS: INDERAL PO SCH ×2 (10:18→20:47)
[2020-10-02] MEDS: GLUCOPHAGE PO SCH ×2 (10:18→17:14)
[2020-10-02] MEDS: AMARYL PO SCH ×3 (10:18→17:14)
[2020-10-02] MEDS: ROBITUSSIN SUGAR-FREE PO PRN (10:21)
--- NOTE | 2020-10-02 17:26 | PCM.PROG ---
Objective: Vitals: T=98.1 F, P=70, R=18, OZ=030/74, SPO2=96 HEENT: [ears; min wax in R ear, both TMs nl., throat nl, PERRL, EOMs nl.] Neck: []not supple Lungs: [] faint rales (improvement) CVS: []RRR, pulses nl Abdomen: []nl bowel sounds, no guarding, no rebound Extremities: []functional, although pt needs to exercise more to build up his strength. 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 Skin: [] Lab/Tests/Diagnostic Imaging: [] 10/01 CXR: improving basilar consolidation. O2 Sat: 94% or more on 3 liters nasal cannula. CMP stable CBC: WBC 12, down from 18. Pt still on Vancomycin. Pt wishes to be discharged and is more cooperative these past two days. He has been keeping his nasal cannula on x 2 days. He has walked with assist in the hallway 2x today. 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 L IV saline lock taken out (burning); however, R IV saline lock still in place. Recommend that pt under THREE STEP PROGRAM for HOME O2 Therapy. This is done just prior to pt's discharge since values are good for only 24 hours.' If pt does not have home O2 therapy, he is likely to decline in all functions. (1) Community acquired pneumonia: Status: Acute Code(s): J18.9 - Pneumonia, unspecified organism SNOMED Code(s): 486828031 (2) Acute hypoxemic respiratory failure: Status: Acute Code(s): J96.01 - Acute respiratory failure with hypoxia SNOMED Code(s): 287237064
[2020-10-03] MEDS: ATROVENT HFA INHALER (PER PUFF-WITH SPACER) IH SCH ×4 (04:50→23:30)
[2020-10-03] MEDS: VENTOLIN HFA (PER PUFF-WITH SPACER) IH SCH ×4 (04:50→23:30)
[2020-10-03] MEDS: HUMULIN R SUBCUT PRN ×4 (06:29→21:25)
[2020-10-03 07:59] LABS: BASOPHILS # (AUTO) 0.1 K/uL (0-0.2); BASOPHILS % (AUTO) 0.4 % (0.0-3.0); EOSINOPHILS # (AUTO) 0.6 K/ul (0.0-0.7); EOSINOPHILS % (AUTO) 3.2 % (0.0-7.0); HEMOGLOBIN 12.4 g/dl (14.0-18.0); IMMATURE GRANULOCYTE # (AUTO) 0.6 (0.0-1.0); IMMATURE GRANULOCYTE % (AUTO) 3.3 % (0.0-5.0); LYMPHOCYTES # (AUTO) 1.6 K/uL (0.60-3.4); LYMPHOCYTES % (AUTO) 9.1 (10.0-50.0); MEAN CORPUSCULAR HGB CONC 33.5 (31.8-35.4); MEAN CORPUSCULAR VOLUME 89.4 fl (80.0-94.0); MONOCYTES # (AUTO) 0.7 K/uL (0.4-2.0); MONOCYTES % (AUTO) 3.8 (0-10); NEUTROPHILS # (AUTO) 13.7 K/ul (2.0-6.9); NEUTROPHILS % (AUTO) 80.2 % (42.2-75.2); PLATELET COUNT 273 10^3/uL (140-440); RDW COEFFICIENT OF VARIATION 13.2 % (11.6-14.8); RED BLOOD COUNT 4.14 10^6/ul (4.70-6.10); WHITE BLOOD COUNT 17.04 K/ul (4.2-10.2)
[2020-10-03 08:04] LABS: ALANINE AMINOTRANSFERASE 14.6 U/L (0-50); ALBUMIN 3.23 g/dL (3.5-5.0); ALKALINE PHOSPHATASE 59.9 U/L (56-119); ASPARTATE AMINO TRANSFERASE 18.9 U/L (17-59); BILIRUBIN,TOTAL 0.51 mg/dL (0.2-1.3); CALCIUM 8.87 mg/dL (8.4-10.2); CARBON DIOXIDE 36.7 mmol/L (22-30.0); CHLORIDE 93.4 mmol/L (98-107); CREATININE 0.77 mg/dL (0.60-1.10); GLUCOSE 262.3 mg/dL (74-106); POTASSIUM 4.1 mmol/L (3.5-5.1); SODIUM 133.9 mmol/L (134.5-145); TOTAL PROTEIN 6.33 g/dL (6.3-8.2)
[2020-10-03] MEDS: MIRAPEX PO SCH ×2 (08:26→21:23)
[2020-10-03] MEDS: NEURONTIN PO SCH ×3 (08:27→21:23)
[2020-10-03] MEDS: ZESTRIL PO SCH (08:27)
[2020-10-03] MEDS: SINGULAIR PO SCH (08:27)
[2020-10-03] MEDS: GLUCOPHAGE PO SCH ×2 (08:27→17:37)
[2020-10-03] MEDS: BALANCED B-100 PO SCH (08:27)
[2020-10-03] MEDS: FLOMAX PO SCH (08:28)
[2020-10-03] MEDS: INDERAL PO SCH ×2 (08:28→21:24)
[2020-10-03] MEDS: HYDROCHLOROTHIAZIDE PO SCH (08:28)
[2020-10-03] MEDS: AMARYL PO SCH ×3 (08:28→17:37)
[2020-10-03] MEDS: FLONASE NAS SCH (08:28)
--- NOTE | 2020-10-03 09:14 | PCM.PROG ---
S) 0910 hrs Patient evaluated this morning and indicated he's doing well. Has productive cough of white sputum. Requesting Mucinex to help cough and congestion. Denies other complaints. Lab and other diagnostics reviewed.
--- NOTE | 2020-10-03 09:15 | PCM.PROG ---
Objective: Vitals: T=97.9 F, P=79, R=20, DR=707/74, SPO2=95 HEENT: [] Neck: [] Lungs: [] CVS: [] Abdomen: [] Extremities: [] Neurological: [] Skin: [] Lab/Tests/Diagnostic Imaging: [] (1) Community acquired pneumonia: Status: Acute Code(s): J18.9 - Pneumonia, unspecified organism SNOMED Code(s): 865586856 (2) Acute hypoxemic respiratory failure: Status: Acute Code(s): J96.01 - Acute respiratory failure with hypoxia SNOMED Code(s): 068985552
--- NOTE | 2020-10-03 09:20 | PCM.PROG ---
Date Seen by Provider: 10/03/20 Time Seen by Provider: 09:10 Subjective: S) 0910 hrs Patient evaluated this morning and indicated he's doing well. Has productive cough of white sputum. Requesting Mucinex to help cough and congestion. Denies other complaints. Lab and other diagnostics reviewed. Objective: Vitals: T=97.9 F, P=79, R=20, ZX=462/74, SPO2=95 HEENT: Clear. Airway patent and not congested. Mucous membranes moist Neck: Soft and supple Lungs: CTA- AF CVS: [] Abdomen: Soft and non tender Extremities: Neg clubbing, cyanosis or edema Neurological: CN II-XII Intact. No Motor, sensory or Cerebellar deficit Skin: Warm and Dry Lab/Tests/Diagnostic Imaging: [] (1) Community acquired pneumonia: Status: Acute Code(s): J18.9 - Pneumonia, unspecified organism SNOMED Code(s): 197523099 (2) Acute hypoxemic respiratory failure: Status: Acute Code(s): J96.01 - Acute respiratory failure with hypoxia SNOMED Code(s): 639251058 (3) Type II diabetes mellitus: Status: Acute Code(s): E11.9 - Type 2 diabetes mellitus without complications SNOMED Code(s): 85317070 Additional Comments Additional Comments: Plan) Discussed Discharge Planning with patient, case management and pharmacy. Anticipated altering antibiotic therapy- discontinuing Vancomycin today, initiating Levofloxacin Home health care, PT after discharge, home oxygen therapy Begin Mucinex 1 BID.
[2020-10-03] MEDS: VANCOMYCIN 1 GM in SODIUM CHLORIDE 250 ML IV SCH (10:36)
[2020-10-03] MEDS: LEVAQUIN PO SCH (11:17)
[2020-10-03] MEDS: MUCINEX PO SCH ×2 (11:18→21:22)
[2020-10-03 12:07] LABS: BILIRUBIN,URINE Negative (NEGATIVE); CLARITY,URINE Clear (CLEAR); COLOR,URINE Yellow (YELLOW); GLUCOSE, URINE (UA) 2+ (NEGATIVE); KETONES,URINE Negative (NEGATIVE); LEUKOCYTE ESTERASE ,URINE 1+ (NEGATIVE); NITRITE,URINE Negative (NEGATIVE); PROTEIN,URINE Trace (NEGATIVE); URINE, BLOOD Trace-intact (NEGATIVE); UROBILINOGEN,URINE 0.2 (0.2)
[2020-10-04] MEDS: ATROVENT HFA INHALER (PER PUFF-WITH SPACER) IH SCH ×2 (04:45→11:03)
[2020-10-04] MEDS: VENTOLIN HFA (PER PUFF-WITH SPACER) IH SCH ×2 (04:45→11:03)
[2020-10-04 05:47] LABS: BASOPHILS # (AUTO) 0.1 K/uL (0-0.2); BASOPHILS % (AUTO) 0.4 % (0.0-3.0); EOSINOPHILS # (AUTO) 0.7 K/ul (0.0-0.7); EOSINOPHILS % (AUTO) 4.7 % (0.0-7.0); HEMATOCRIT 36.3 % (42.0-52.0); HEMOGLOBIN 12.1 g/dl (14.0-18.0); IMMATURE GRANULOCYTE # (AUTO) 0.4 (0.0-1.0); IMMATURE GRANULOCYTE % (AUTO) 2.8 % (0.0-5.0); LYMPHOCYTES # (AUTO) 1.7 K/uL (0.60-3.4); LYMPHOCYTES % (AUTO) 11.9 (10.0-50.0); MEAN CORPUSCULAR HEMOGLOBIN 29.8 pg (27.0-31.0); MEAN CORPUSCULAR HGB CONC 33.3 (31.8-35.4); MEAN CORPUSCULAR VOLUME 89.4 fl (80.0-94.0); MONOCYTES # (AUTO) 0.6 K/uL (0.4-2.0); MONOCYTES % (AUTO) 4.5 (0-10); NEUTROPHILS # (AUTO) 10.5 K/ul (2.0-6.9); NEUTROPHILS % (AUTO) 75.7 % (42.2-75.2); PLATELET COUNT 253 10^3/uL (140-440); RED BLOOD COUNT 4.06 10^6/ul (4.70-6.10); WHITE BLOOD COUNT 13.91 K/ul (4.2-10.2)
[2020-10-04 05:53] VITALS: TEMP 97.8
[2020-10-04 05:56] LABS: ALANINE AMINOTRANSFERASE 13.9 U/L (0-50); ALBUMIN 3.19 g/dL (3.5-5.0); ALKALINE PHOSPHATASE 59.3 U/L (56-119); ASPARTATE AMINO TRANSFERASE 18.9 U/L (17-59); BILIRUBIN,TOTAL 0.52 mg/dL (0.2-1.3); BLOOD UREA NITROGEN 10.4 mg/dL (9-20); CALCIUM 8.72 mg/dL (8.4-10.2); CARBON DIOXIDE 37.3 mmol/L (22-30.0); CREATININE 0.85 mg/dL (0.60-1.10); GLUCOSE 179.8 mg/dL (74-106); POTASSIUM 3.93 mmol/L (3.5-5.1); SODIUM 133.3 mmol/L (134.5-145); TOTAL PROTEIN 6.29 g/dL (6.3-8.2)
[2020-10-04] MEDS: LEVAQUIN PO SCH (06:18)
[2020-10-04] MEDS: HUMULIN R SUBCUT PRN ×2 (06:25→11:53)
[2020-10-04] MEDS: MIRAPEX PO SCH (08:12)
[2020-10-04] MEDS: SINGULAIR PO SCH (08:13)
[2020-10-04] MEDS: BALANCED B-100 PO SCH (08:13)
[2020-10-04] MEDS: INDERAL PO SCH (08:13)
[2020-10-04] MEDS: NEURONTIN PO SCH ×2 (08:13→14:33)
[2020-10-04] MEDS: ZESTRIL PO SCH (08:13)
[2020-10-04] MEDS: FLOMAX PO SCH (08:13)
[2020-10-04] MEDS: HYDROCHLOROTHIAZIDE PO SCH (08:14)
[2020-10-04] MEDS: AMARYL PO SCH ×2 (08:14→11:52)
[2020-10-04] MEDS: GLUCOPHAGE PO SCH (08:14)
[2020-10-04] MEDS: FLONASE NAS SCH (08:22)
[2020-10-04] MEDS: MUCINEX PO SCH (08:27)
--- NOTE | 2020-10-04 10:44 | DI ---
EXAM: Chest two views HISTORY: Pneumonia FINDINGS: Compared to 10/01/2020. Low lung volumes and seated position limits the exam. Cardiomega ly and atherosclerotic disease are again noted. Lung bases are poorly seen although patchy densities appear to remain present similar to that previously seen. This could indicate atelectasis or pneumo daniela. There is no vascular congestion, visible pleural fluid or pneumothorax. IMPRESSION: 1. Persistent bibasilar densities could represent atelectasis or pneumonia. Correlate clinically. If symptoms persist, consider follow up with full inspiration, standing two-view chest radiography us ing PA and lateral technique.
[2020-10-04 14:37] VITALS: BP 138/74
--- NOTE | 2020-10-04 15:30 | PCM.PROG ---
Objective: S: Feels better, sleeping well. sats stable on po levaquin. No fever. Vitals: T=97.8 F, P=70, R=20, CY=668/74, SPO2=95 HEENT: ATNC, Airway clear Neck: supple Lungs: Clear to A/P CVS: RRR Abdomen: benign Extremities: no CCE Neurological: intact without focal deficits Skin: No CCERP Lab/Tests/Diagnostic Imaging: WBC: 13.9 H/H 12.1/36.3 Na: 133. K:3.9, Co2: 37, CL: [address] [address] Diagnostic Imaging Diagnostic Imaging Report : [id number] Signed Patient: GRANT ANTOINEAcct:[id number] Record: [id number] : 1935Loc: [facility] ARoom/Bed: Age/Sex: 85 / MADM Status: ADM INDate of Service: 10/04/20 Ordering Physician: MISTY REAGAN DO Procedure(s): CHEST, 2 VIEWS PA & LAT Report Number(s): [id number] Accession Number(s): [id number] cc: MEY HOBSON THOMAS DO EXAM: Chest two views HISTORY: Pneumonia FINDINGS: Compared to 10/01/2020. Low lung volumes and seated position limits the exam. Cardiomegaly and atherosclerotic disease are again noted. Lung bases are poorly seen although patchy densities appear to remain present similar to that previously seen. This could indicate atelectasis or pneumonia. There is no vascular congestion, visible pleural fluid or pneumothorax. IMPRESSION: 1. Persistent bibasilar densities could represent atelectasis or pneumonia. Correlate clinically. If symptoms persist, consider follow up with full inspiration, standing two-view chest radiography using PA and lateral technique. Dictated By:TAMY VAZQUEZ Signed By:TAMY VAZQUEZ Dictated Date/Time: 10/04/20 1037 Transcribed Date/Time: 10/04/20 1037 Signed Date/Time: 10/04/20 1044 (1) Community acquired pneumonia: Status: Acute Code(s): J18.9 - Pneumonia, unspecified organism SNOMED Code(s): 938880477 (2) Acute hypoxemic respiratory failure: Status: Acute Code(s): J96.01 - Acute respiratory failure with hypoxia SNOMED Code(s): 902239314 (3) Type II diabetes mellitus: Status: Acute Code(s): E11.9 - Type 2 diabetes mellitus without complications SNOMED Code(s): 52220029
--- NOTE | 2020-10-04 15:36 | PCM.PROG ---
Medical decsion making: Plan discharge home today on 2 L NC 02. Continue po levaquin. PCP follow up set up by rn case management.
--- NOTE | 2020-10-06 09:33 | PCM.HOSP ---
Addendum entered and electronically signed by ARNEL DUNAWAY MD 12/13/20 13:48: Additional Information: Final Diagnosis: Community Aquired Pneumonia Acute hypoxemic respiratory failure Medications at discharge: Aspirin 325m qd Cetrizine 5 mg po qd gabapentin 600 tid Glimepride 1mg po tid HCTZ 50 qd Lisinopril 40 po qd Metformin 500 po BID Montelukast 10 mg qd Propranolol 20 mg po BID Levaquin 750 po BID Lab/Diagnostics: WBC decreased to 13.0, H/H 12.1/36.3 CXR unchanged Patient instructed to rest, drink plenty of fluids and take antibiotics as directed. Hospital Course: 85 year ood male with type 2 DM presented with CAP and treated with IV antibiotics. He was COVID negative, and responded well to IV antibiotics afte several days of treatment. He was switched to po meds and observed for 24 hours without clinical deterioration and was discharged home on po meds and home 02. Disposition : Home in fair condition Original Note:
[2020-11-03 07:10] LABS: CREATINE KINASE MB 5.26 ng/ml (0.0-2.38)
--- NOTE | 2020-11-05 11:24 | PCM.PROG ---
Objective: Vitals: T=97.8 F, P=70, R=20, TX=306/74, SPO2=95 HEENT: []oropharynx clear, mildly dry, no lesions Neck: []arthritic, painful when manipulated gently Lungs: [] clear, limited respiratory excursion CVS: []RRR Abdomen: soft, nontender 4 quadrants and periumbilical[] Extremities: []weak, pt does not cooperate w exam Neurological: []alert, oriented x 3 Skin: []dry Lab/Tests/Diagnostic Imaging: []strep bacteremia; continue IV Abx (1) Community acquired pneumonia: Status: Acute Code(s): J18.9 - Pneumonia, unspecified organism SNOMED Code(s): 119440125 (2) Acute hypoxemic respiratory failure: Status: Acute Code(s): J96.01 - Acute respiratory failure with hypoxia SNOMED Code(s): 783695720 (3) Type II diabetes mellitus: Status: Acute Code(s): E11.9 - Type 2 diabetes mellitus without complications SNOMED Code(s): 53309957
== END 2020-10-04 15:55 | disposition home or self-care (01) | DRG 204 ==
LOC: ED 20:41 → MEDSURG A 09-27 00:35
PROVIDERS: ADMIT Internal Medicine Geriatric Medicine; ATTEND Emergency Medicine
DX: R05 Cough; R50.9 Fever, unspecified; R53.1 Weakness; J96.01 Acute respiratory failure with hypoxia; R78.81 Bacteremia; E11.9 Type 2 diabetes mellitus without complications; R06.02 Shortness of breath